=== PATIENT | male | born 2000 | race Caucasian/White ===

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

== ENCOUNTER 2019-12-07 18:36 | Emergency (ER) | payer MEDICAID ==
[~2019-12-07] VITALS: Ht 187.9 cm; Wt 82.0 kg
[2019-12-07 18:36] VITALS: BP 156/82
--- OUTSIDE RECORDS SUMMARY | 2019-12-07 18:42 | XMS REPORT ---
Author Author Manjinder Griffiths Organization [facility] Address Unknown Care Team Providers Care Assistant Director Name Role Phone RICARDO Griffiths Unavailable PROBLEMS Type Condition ICD9-CM Code [id number] Code Onset Dates Condition S tatus SNOMED Code Problem Attention deficit disorder without mention of hyperactivit y F98.8 Active 326315148 Problem Mild mental retardation F70 Active 23085501 ALLERGIES No Information ENCOUNTERS Encounter Location Date Diagnosis [facility] [address] [place] [id number] [place] [address] Jun, [facility] [address] [place] [address] [id number] [address] [place] [phone] Jun, Ingrowing nail with infectio n L60.0 [facility] [address] [facility] [id number] [address] [place] [phone] May, [facility] [address] [place] [id number] [address] [place] [phone] May, Ingrown toenail L60.0 [facility] [address] [place] [id number] [place] [address] Apr, Ingrown toenail of right dorinda t L60.0 [facility] [address] [facility] [id number] [address] [place] [phone] Apr, [facility] [address] [place] [id number] [address] [place] [phone] Apr, [facility] [address] [place] [id number] [place] [phone] Feb, Non-intractable vomiting wit h nausea, unspecified vomiting type R11.2 [facility] [address] [facility] [id number] [address] [place] [phone] May, Infection, nail, ingrowing L 60.0 [facility] [address] [id number] [address] [place] [phone] May, Infection, nail, ingrowing L 60.0 [facility] [address] [facility] [id number] [address] [place] [phone] Aug, Headache in front of head R5 1 [facility] [address] [id number] [address] [place] [phone] 16 Aug, 2015 Sore throat J02.9 and Upper respiratory infection J06.9 [facility] [address] [facility] [id number] [address] [place] [phone] May, Sinusitis J32.9 [facility] [place] [address] [facility] [id number] [address] [place] [phone] Apr, Bee allergy status Z91.030 [facility] [address] [id number] [address] [place] [phone] Sep, [facility] [address] [id number] [address] [place] [phone] Sep, [facility] [address] [id number] [address] [place] [phone] Jul, [facility] [address] [id number] [address] [place] [phone] Jul, [facility] [address] [id number] [address] [place] [phone] Jun, [facility] [address] [id number] [address] [place] [phone] Jun, [facility] [address] [id number] [address] [place] [phone] Apr, [facility] [address] [id number] [address] [place] [phone] Apr, [facility] [address] [id number] [address] [place] [phone] Mar, [facility] [address] [id number] [address] [place] [phone] Mar, [facility] [address] [id number] [address] [place] [phone] Mar, [facility] [address] [id number] [address] [place] [phone] Mar, [facility] [address] [id number] [address] [place] [phone] Nov, [facility] [address] [id number] [address] [place] [phone] May, [facility] [address] [id number] [address] [place] [phone] Mar, [facility] [address] [id number] [address] [place] [address] Apr, [facility] [address] [id number] [address] [place] [phone] Jul, [facility] [address] [id number] [address] [place] [address] Jun, IMMUNIZATIONS No Known Immunizations SOCIAL HISTORY Never Assessed REASON FOR VISIT PLAN OF CARE VITAL SIGNS MEDICATIONS Unknown Medications RESULTS No Results PROCEDURES No Known procedures INSTRUCTIONS MEDICATIONS ADMINISTERED No Known Medications MEDICAL (GENERAL) HISTORY Type Description Date Medical History ADHD Medical History Autism Surgical History tubes in ears 2002 Surgical History tonsils 2010 Hospitalization History surgeries
--- OUTSIDE RECORDS SUMMARY | 2019-12-07 18:42 | XMS REPORT ---
Author Author Manjinder COSTA Organization [facility] Address [address] [place] [address] Care Team Providers Care Media Coordinator Name Role Phone THANIA COSTA Unavailable PROBLEMS Type Condition ICD9-CM Code [id number] Code Onset Dates Condition S tatus SNOMED Code Problem Mild mental retardation F70 Active 65444642 Problem Attention deficit disorder without mention of hyperactivit y F98.8 Active 140143408 ALLERGIES No Known Allergies ENCOUNTERS Encounter Location Date Diagnosis [facility] [address] [id number] [address] [place] [phone] Aug, Headache in front of head R5 1 [facility] [address] [id number] [address] [place] [phone] Aug, Sore throat J02.9 and Upper respiratory infection J06.9 [facility] [place] [address] [place] [address] [id number] [address] [place] [phone] May, Sinusitis J32.9 [facility] [place] [address] [place] [id number] [address] [place] [address] Apr, Bee allergy status Z91.030 [facility] [address] [place] [address] [id number] [address] [place] [phone] Sep, [facility] [address] [facility] [id number] [address] [place] [phone] Sep, [facility] [address] [place] [address] [id number] [address] [place] [phone] Jul, [facility] [address] [id number] [address] [place] [phone] Jul, [facility] [address] [place] [address] [id number] [address] [place] [phone] Jun, [facility] [address] [id number] [address] [place] [phone] Jun, [facility] [address] [id number] [address] [place] [phone] Apr, [facility] [address] [id number] [address] [place] [phone] Apr, [facility] [address] [id number] [address] [place] [phone] Mar, [facility] [address] [id number] [address] [place] [phone] Mar, [facility] [address] [id number] [address] [place] [phone] Mar, [facility] [address] [id number] [address] [place] [phone] Mar, [facility] [address] [id number] [address] [place] [phone] Nov, [facility] [address] [id number] [address] [place] [phone] May, [facility] [address] [id number] [address] [place] [phone] Mar, [facility] [address] [id number] [address] [place] [phone] Apr, [facility] [address] [id number] [address] [place] [phone] Jul, [facility] [address] [id number] [address] [place] [phone] Jun, IMMUNIZATIONS No Known Immunizations SOCIAL HISTORY Never Assessed REASON FOR VISIT Headaches every day since sunday-Jose C PLAN OF CARE Activity Details Follow Up prn or if not improving Reas on: VITAL SIGNS Height 70 in 2017-09-19 Weight 168.8 lbs 2017-09-19 Temperature 99.7 degrees Fahrenheit 2017-09-19 Heart Rate 96 bpm 2017-09-19 Respiratory Rate 20 2017-09-19 BMI 24.22 kg/m2 2017-09-19 Blood pressure systolic 132 mmHg 2017-09-19 Blood pressure diastolic 76 mmHg 2017-09-19 MEDICATIONS Medication Instructions Dosage Frequency Start Date End Date Duration S tatus Loratadine 10 mg Orally Once a day 1 tablet 24h Aug, October, 30 day(s) Active Flonase 50 MCG/ACT Nasally Once a day 1 spray in each nostril 24h Aug, 30 day(s) Active RESULTS No Results PROCEDURES No Known procedures INSTRUCTIONS MEDICATIONS ADMINISTERED No Known Medications MEDICAL (GENERAL) HISTORY Type Description Date Medical History ADHD Medical History Autism Surgical History tubes in ears 2001 Surgical History tonsils 2009 Hospitalization History surgeries
--- OUTSIDE RECORDS SUMMARY | 2019-12-07 18:42 | XMS REPORT ---
Author Author Manjinder Jim Doctor Organization [facility] Address Unknown Phone Unavailable Care Team Providers Care Shredded Filler Machine Wrapper Layer Name Role Phone Migration, Doctor Unavailable Unavailable PROBLEMS Type Condition ICD9-CM Code [id number] Code Onset Dates Condition S tatus SNOMED Code Problem Attention deficit disorder without mention of hyperactivit y F98.8 Active 639240662 Problem Mild mental retardation F70 Active 72750010 ALLERGIES No Information ENCOUNTERS Encounter Location Date Diagnosis [place] [address] [address] May, Infection, nail, ingrowing L 60.0 [place] [address] [address] May, Infection, nail, ingrowing L 60.0 [place] [address] [place] [id number] [address] [place] [phone] Aug, Headache in front of head R5 1 [facility] [place] [address] [place] [address] [id number] [address] [place] [address] 16 Aug, 2015 Sore throat J02.9 and Upper respiratory infection J06.9 [facility] WALK IN [id number] [place] [address] May, Sinusitis J32.9 [facility] [place] [address] [address] [place] [id number] [address] [place] [address] Apr, Bee allergy status Z91.030 [place] [address] [place] [id number] [place] [phone] 14 Sep, 2014 [place] [address] [address] [place] [id number] [place] [phone] Sep, [place] [address] [place] [id number] [place] [phone] Jul, [facility] [address] [id number] [address] [place] [phone] Jul, [facility] [address] [id number] [address] [place] [phone] Jun, [facility] [address] [id number] [address] [place] [phone] Jun, [facility] [address] [id number] [address] [place] [phone] Apr, [facility] [address] [id number] [address] [place] [address] Apr, [facility] [address] [id number] [address] [place] [phone] Mar, [facility] [address] [id number] [address] [place] [phone] Mar, [facility] [address] [id number] [address] [place] [phone] Mar, [facility] [address] [id number] [address] [place] [phone] Mar, [facility] [address] [id number] [address] [place] [phone] Nov, [facility] [address] [id number] [address] [place] [phone] May, [facility] [address] [id number] [address] [place] [phone] Mar, [facility] [address] [id number] [address] [place] [phone] Apr, [facility] [address] [id number] [address] [place] [phone] 14 Jul, 2005 [facility] [address] [id number] [address] [place] [phone] Jun, IMMUNIZATIONS No Known Immunizations SOCIAL HISTORY Never Assessed REASON FOR VISIT EMR-[facility] [place] PLAN OF CARE VITAL SIGNS MEDICATIONS No Known Medications RESULTS No Results PROCEDURES No Known procedures INSTRUCTIONS MEDICATIONS ADMINISTERED No Known Medications MEDICAL (GENERAL) HISTORY Type Description Date Medical History ADHD Medical History Autism Surgical History tubes in ears 2001 Surgical History tonsils 2010 Hospitalization History surgeries
--- OUTSIDE RECORDS SUMMARY | 2019-12-07 18:42 | XMS REPORT ---
Author Author Manjinder Jim Doctor Organization [facility] Address Unknown Phone Unavailable Care Team Providers Care Door Closer Name Role Phone Migration, Doctor Unavailable Unavailable PROBLEMS Type Condition ICD9-CM Code [id number] Code Onset Dates Condition S tatus SNOMED Code Problem Attention deficit disorder without mention of hyperactivit y F98.8 Active 523334876 Problem Mild mental retardation F70 Active 87610916 ALLERGIES No Information ENCOUNTERS Encounter Location Date Diagnosis [place] [address] [address] May, Infection, nail, ingrowing L 60.0 [place] [address] [address] May, Infection, nail, ingrowing L 60.0 [place] [address] [address] [place] [id number] [place] [phone] Aug, Headache in front of head R5 1 [facility] [place] [address] [address] [place] [id number] [address] [place] [phone] 16 Aug, 2015 Sore throat J02.9 and Upper respiratory infection J06.9 [facility] WALK IN [address] [place] [address] May, Sinusitis J32.9 [facility] [place] [address] [address] [place] [id number] [address] [place] [address] Apr, Bee allergy status Z91.030 [place] [address] [address] [place] [id number] [address] [place] [address] 14 Sep, 2014 [place] [address] [address] [place] [id number] [address] [place] [phone] Sep, [place] [address] [address] Jul, [facility] [address] [id number] [address] [place] [phone] Jul, [facility] [address] [id number] [address] [place] [phone] Jun, [facility] [address] [id number] [address] [place] [phone] Jun, [facility] [address] [id number] [address] [place] [phone] Apr, [facility] [address] [id number] [address] [place] [phone] Apr, [facility] [address] [id number] [address] [place] [phone] Mar, [facility] [address] [id number] [address] [place] [phone] Mar, [facility] [address] [id number] [address] [place] [phone] Mar, [facility] [address] [id number] [address] [place] [phone] Mar, [facility] [address] [id number] [address] [place] [phone] Nov, [facility] [address] [id number] [address] [place] [phone] May, [facility] [address] [id number] [address] [place] [phone] Mar, [facility] [address] [id number] [address] [place] [phone] Apr, [facility] [address] [id number] [address] [place] [phone] 14 Jul, 2005 [facility] [address] [id number] [address] [place] [phone] Jun, IMMUNIZATIONS No Known Immunizations SOCIAL HISTORY Never Assessed REASON FOR VISIT EMR-[facility] PLAN OF CARE VITAL SIGNS MEDICATIONS Medication Instructions Dosage Frequency Start Date End Date Duration S lissa Focalin 5 mg take 1 tablet (5 mg) by oral route 2 times per day at least 4 hours apart Mar, Active RESULTS No Results PROCEDURES No Known procedures INSTRUCTIONS MEDICATIONS ADMINISTERED No Known Medications MEDICAL (GENERAL) HISTORY Type Description Date Medical History ADHD Medical History Autism Surgical History tubes in ears 2001 Surgical History tonsils 2010 Hospitalization History surgeries
--- OUTSIDE RECORDS SUMMARY | 2019-12-07 18:42 | XMS REPORT ---
Author Author Manjinder LIRA Organization [facility] Address [address] [place] [address] Care Team Providers Care Ag Equipment Field Service Technician Name Role Phone SORAYA ESTHER Unavailable PROBLEMS Type Condition ICD9-CM Code [id number] Code Onset Dates Condition S tatus SNOMED Code Problem Attention deficit disorder without mention of hyperactivit y F98.8 Active [id number] Problem Mild mental retardation F70 Active [id number] ALLERGIES No Information ENCOUNTERS Encounter Location Date Diagnosis [place] [id number] [address] May, Infection, nail, ingrowing L 60.0 [place] [address] [address] May, Infection, nail, ingrowing L 60.0 [facility] [address] [address] Aug, Headache in front of head R5 1 [facility] [address] [place], [place] [id number] [address] [place] [address] Aug, Sore throat J02.9 and Upper respiratory infection J06.9 [facility] [address] [place] [id number] [address] [place] [phone] May, Sinusitis J32.9 [facility] [place] [address] [address] [place] [id number] [place] [address] Apr, Bee allergy status Z91.030 [facility] [address] [address] 14 Sep, 2014 [facility] [address] [address] 13 Sep, 2014 [facility] [address] [id number] [address] [place] [address], [place] [address] Jul, [facility] [address] [id number] [address] [place] [address], [place] [address] Jul, [facility] [address] [id number] [address] [place] [address], [place] [address] Jun, [facility] [address] [id number] [address] [place] [address], [place] [address] Jun, [facility] [address] [id number] [address] [place] [address], [place] [address] Apr, [facility] [address] [id number] [address] [place] [address], [place] [address] Apr, [facility] [address] [id number] [address] [place] [address], [place] [address] Mar, [facility] [address] [id number] [address] [place] [phone] Mar, [facility] [address] [id number] [address] [place] [address], [place] [address] Mar, [facility] [address] [id number] [address] [place] [phone] Mar, [facility] [address] [id number] [address] [place] [address] Nov, [facility] [address] [id number] [address] [place] [id number] 17 May, 2008 [facility] [address] [id number] [address] [place] [address], [place] [address] 14 Mar, 2008 [facility] [address] [id number] [address] [place] [phone] 14 Apr, 2006 [facility] [address] [id number] [address] [place] [phone] 14 Jul, 2005 [facility] [address] [id number] [address] [place] [phone] Jun, IMMUNIZATIONS No Known Immunizations SOCIAL HISTORY Never Assessed REASON FOR VISIT PLAN OF CARE VITAL SIGNS Height 67 in 2014-04-17 Weight 135 lbs 2014-04-17 Temperature 96.9 degrees Fahrenheit 2014-04-17 Heart Rate 80 bpm 2014-04-17 Respiratory Rate 18 2014-04-17 Blood pressure systolic 106 mmHg 2014-04-17 Blood pressure diastolic 64 mmHg 2014-04-17 MEDICATIONS No Known Medications RESULTS No Results PROCEDURES Procedure Date Ordered Result Body Site CHEST X-RAY Apr 17, 2014 INSTRUCTIONS MEDICATIONS ADMINISTERED No Known Medications MEDICAL (GENERAL) HISTORY Type Description Date Medical History ADHD Medical History Autism Surgical History tubes in ears 2001 Surgical History tonsils 2010 Hospitalization History surgeries
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
--- OUTSIDE RECORDS SUMMARY | 2019-12-07 18:42 | XMS REPORT ---
Author Author [place] [facility] Address [address] [place] [address] [address] Care Team Providers Care Operating Systems Programmer Name Role Phone ALBERT MONTANEZ Unavailable Unavailable ZHOUBRITNEY ALVARADO Unavailable Unavailable [facility] Un[facility] Unavailable LARA COSTANYA Unavailable Migration, Doctor Unavailable Unavailable DAISY SONG Unavailable Unavailable PAONI, RAMSEY Unavailable Unavailable PAONI, RAMSEY Unavailable Unavailable DANG DEA Unavailable Unavailable PAONI, RAMSEY Unavailable Unavailable PAONI, RAMSEY Unavailable Unavailable Migration, Doctor Unavailable Unavailable ARIK PETERSEN Unavailable Unavailable BROWN, HITESH Unavailable Unavailable BROWN, HITESH Unavailable Unavailable SABAS LOCO Unavailable RISHI LIPSCOMB Unavailable ESTHER LIRA Unavailable ESTHER LIRA Unavailable RICARDO Griffiths Unavailable Unavailable Unavailable Unavailable Unavailable Allergies Normalized Allergy Reported Date of Reaction(s) Care Provider Facility Allergy Type classification allergen Allergy Onset no information Unclassified NO KNOWN DRUG NO KNOWN DRUG CUCA Not Available (19 sources.) ALLERGIES ALLERGIES GILDA ([id number]) Medications Current Medications Medication Ingredient Drug Dose Dates Status Sig Sig Care Class(es) (Normalized) (Original) Provid er dexmethylph dexmethylph Central 5 mg 04-17-20 Active take 1 Fo jaylon 5 mg no enidate enidate Nervous 14 tablet by take 1 name hydrochlori Translation System mouth twice tablet (5 de 5 mg s: [ Stimulant daily mg) by oral oral tablet Focalin 5 route 2 (1 source.) mg] times per day at least 4 hours apart Mar, Active Completed/Discontinued Medications Medication Ingredient Drug Dose Dates Status Sig Sig Care Class(es) (Normalized) (Original) Provid er no AMOX-CLAV no 11-07-19 no no no no information 875/125 TAB information 19 - informat informati on information name (1 source.) 875 11-07-19 ion MG-125MG 19 (AUGMENTIN) no AMOX-CLAV no 10-25-19 no no no no information 875/125 TAB information 17 - informat informati on information name (1 source.) 875 10-25-19 ion MG-125MG 17 (AUGMENTIN) no KETOROLAC no 10-11-19 no no no no information VIAL INJ 30 information 19 - informat informati on information name (1 source.) MG/CC 10-11-19 ion (TORADOL 19 VIAL) no Nitroglycer Nitrate 0.4 mg 10-11-19 no no no no information in Vasodilator 19 - informat information infor mation name (1 source.) 10-11-19 ion 19 no POLY/BACI/N no 10-25-19 no no no no information EOM OINT information 17 - informat information inf ormation name (1 source.) OINT 0 10-25-19 ion (NEOSPORIN) 17 NEGATED no no 04-15-20 no no no no no information information 18 - informat information infor mation name information 04-15-20 ion (1 source.) 18 NEGATED no no 600 mg 04-15-20 no no no no no information information 18 - informat information infor mation name information 04-15-20 ion (1 source.) 18 NEGATED no no 04-15-20 no no no no no information information 18 - informat information infor mation name information 04-15-20 ion (1 source.) 18 NEGATED no no 500 mg 03-21-20 no no no no no information information 18 - informat information infor mation name information 03-21-20 ion (1 source.) 18 NEGATED no no 12-17-19 no no no no no information information 18 - informat information infor mation name information 12-24-19 ion (1 source.) 18 NEGATED no no 1 g 12-17-19 no no no no no information information 18 - informat information infor mation name information 12-24-19 ion (1 source.) 18 Problems Active Problems Problem Normalized Date Last Normalized Normalized Provider Fa cility Classification Problem(s) Recorded Problem Problem Sta tus Duration Acute Acute Episodic Active [facility] bronchitis (21 bronchitis, [place] of sources.) unspecified [place] Translations: [facility] () [ ACUTE BRONCHITIS] Attention-defi Adult Chronic Active Doctor Communit y cit conduct attention [facility] and disruptive deficit of [facility] behavior hyperactivity [place] ([address]) disorders (7 disorder sources.) Translations: [ Attention deficit disorder without mention of hyperactivity] External cause Bitten by dog, Episodic Active [facility] spital codes: initial LEISURE [facility]1 of Natural/enviro encounter [place] nment (20 County ([address]) sources.) Mycoses (20 Candidiasis of Episodic [facility] sources.) skin and nail LEIS[facility] o f [facility] ([id number]) Other Encounter for [facility] aftercare (26 change or LEISURE [place] [facility] of sources.) removal of [place] surgical wound [facility] ([id number]) dressing NEGATED Encounter for Episodic Active RADHA GARDENIA Not Available no change or ([address]) information (6 removal of sources.) surgical wound dressing Bacterial [facility] Active [facility] infection; bacillus LEISURE [facility] of unspecified infection in [place] site (24 conditions [facility] ([address]) sources.) classified elsewhere and of unspecified site Translations: [ METHICILLIN SUSCEP STAPH INFCT CAUSING DIS CLASSD ELSWHR, KLEBSIELLA PNEUMONIAE THE CAUSE OF DISEASES CLASSD ELSWHR, METHICILLIN SUSCEPTIBLE STAPHYLOCOCCUS AUREUS INFECTION IN CONDITIONS CLASSIFIED ELSEWHERE AND OF UNSPECIFIED SITE, KLEBSIELLA PNEUMONIAE THE CAUSE OF DISEASES CLASSD ELSWHR] Complications Infection Episodic Active [facility] of surgical following a LEISURE [facility] of procedures or procedure, [place] medical care [facility] ([id number]) (15 sources.) encounter Translations: [ OTHER POSTOPERATIVE INFECTION] Other skin Ingrowing nail Episodic Active Doctor Commun ity disorders (20 Translations: [facility] sources.) [ - Infection, of [facility] nail, [place] ([address]) ingrowing L60.0, - Ingrowing nail with infection L60.0, - Ingrown toenail L60.0, - Ingrown toenail of right foot L60.0] Other skin Ingrowing nail Episodic Active ARIK HOWAYEK Ho spital disorders (16 District [place]1 of sources.) [facility] ([id number]) Viral Viral Episodic Active [facility] infection (25 infection, [place] of sources.) unspecified [place] Translations: [facility] ([id number]) [ UNSPECIFIED VIREMIA] Past or Other Problems Problem Normalized Date Last Normalized Normalized Provider Fa cility Classification Problem(s) Recorded Problem Problem Sta tus Duration External cause Bitten by dog, no information no information HANNA TIN Not Available codes: initial [place] ([id number]) Natural/enviro encounter nment (4 Translations: sources.) [ DOG BITE] Spondylosis; Cervicalgia Episodic Com[facility] inter[facility]bral [facility] of disc [place] disorders; [facility] ([address]663) other back problems (20 sources.) Procedures Procedure Normalized Procedure Procedure Result Performer Facility Date 04-17-2014 Chest x-ray no information no name [facility] ([id number]) 05-01-2014 Psychiatric diagnostic no information no name [facility] (08856) Immunizations The data below is from unstructured sourcesNo immunization records.No immunization records.No immunization records.No immunization records.No immunization records.No immunization records.No immunization records.No immunization records.No immunization records. No Known Immunizations No Known Immunizations No Known Immunizations No Known Immunizations No Known Immunizations No Known Immunizations No Known Immunizations No Known Immunizations No Known Immunizations No Known Immunizations No Known Immunizations No Known Immunizations No Known Immunizations No Known Immunizations No Known Immunizations No Known Immunizations Results Test Name Value Interpretation Reference Range Date Time Fa cility (Normalized) (Normalized) (Medline Reference) other on 2018-06-07 S. pyogenes DNA Negative (A) 06-07-2018 Hospital JHONNY+probe Ql 21:55-0500 District [facility] of (Throat) [facility] ([id number]) Vital Signs Vital Sign Value Interpretation Reference Date Time Care Prov ider Facility (Normalized) (Normalized) Range Body 96.9 [degF] (no code) 97.8 - 99.0 04-17-2014 ESTHER [facility] Temperature [degF] 12: 23651 [facility] ([id number]) Body weight 61.24 kg (no code) kg 04-17-2014 [facility] 12:14 [address]98 [facility] (04970) Height 170.18 cm (no code) 04-17-2014 ESTHER Garcia [facility] 12:14-0400 67725 [facility] ([id number]) Interventions No Information Plan of Treatment The data below is from unstructured sources Discharge Date 04/28/15 7:24pm Disposition 07 AGAINST MEDICAL ADVIC E Condition at Discharge Improved Prescriptions See Medication Section Referrals [facility] - Primary Care Physician Discharge Date 12/01/15 1:45am Disposition 01 HOME, SELF-CARE Condition at Discharge Improved Instructions/Education Provided Acut e Nausea and Vomiting (ED) Prescriptions See Medication Section Referrals [facility] - Primary Care Physician Additional Instructions/Education Co mplete your antibiotics as prescribed. You may take ibuprofen up to 600 mg every 6 hours as needed for pain in the foot or headache. Follow-up with your primary care provider as needed. All discharge instructions reviewed with patient and/or family. Voiced understanding. Activity Details Follow Up prn or if not improving Re ason: Goals No Information Social History No Information Functional Status The data below is from unstructured sourcesNo functional status results.No functional status results.No functional status results.No functional status results.No functional status results.No functional status results.No functional status results.No functional status results.No functional status results.No functional status results.No functional status results. Mental Status No Information Encounters Encounter Normalized Encounter Encounter Diagnosis Care Provi areli Organization Date Type 06-10-2018 (ACUTE) Acute Visit Ingrowing nail ESTHER LIRA (no [facility] - phone) (no phone) 06-10-2018 - 06-10-2018 06-19-2018 (PROC-20) Procedure-20 Ingrowing nail ESTHER LIRA (no [facility] - min phone) (no phone) 06-19-2018 - 06-19-2018 05-14-2019 [facility] Ingrowing nail BRITNEY CARPENTER ( no [facility] CARE phone) CARE (no phone) 03-20-2019 [facility] Nausea with vomiting, АННА STINSON ([facility] unspecified phone) CARE (no phone) 07-08-2019 [facility] Ingrowing nail ESTHER LIRA ( no [facility] phone) (no phone) 06-05-2019 [facility] Ingrowing nail ANA BEAR (no [facility] phone) (no phone) 04-15-2018 Patient encounter no information no name no or ganization name - 04-15-2018 03-21-2018 Patient encounter no information no name no or ganization name - 03-21-2018 03-21-2018 Patient encounter no information no name no or ganization name - 03-21-2018 12-23-2017 Patient encounter no information no name no or ganization name - 12-23-2017 12-22-2017 Patient encounter no information no name no or ganization name - 12-22-2017 12-21-2017 Patient encounter no information no name no or ganization name - 12-21-2017 12-20-2017 Patient encounter no information no name no or ganization name - 12-20-2017 NEGATED Patient encounter no information no name no or ganization name 12-19-2017 - 12-19-2017 NEGATED Patient encounter no information no name no or ganization name 12-15-2017 - 12-17-2017 09-19-2017 Patient encounter no information no name no or ganization name 05-07-2019 Patient encounter no information no name no or ganization name - procedure 05-07-2019 11-06-2018 Patient encounter no information no name no or ganization name - procedure 11-06-2018 10-10-2018 Patient encounter no information no name no or ganization name - procedure 10-10-2018 06-19-2018 Patient encounter no information no name no or ganization name procedure 06-10-2018 Patient encounter no information no name no or ganization name procedure 06-07-2018 Patient encounter no information no name no or ganization name - procedure 06-07-2018 12-28-2016 Patient encounter no information no name no or ganization name - procedure 12-28-2016 10-24-2016 Patient encounter no information no name no or ganization name - procedure 10-24-2016 10-23-2016 Patient encounter no information no name no or ganization name procedure 07-11-2019 Telephone encounter no information ESTHER LIRA (no [facility] phone) (no phone) 06-06-2019 Telephone encounter no information ANA BEAR (n o [facility] phone) (no phone) 05-13-2019 Telephone encounter no information KATY CABRERA (no phone) [facility] (no phone) 05-08-2019 Telephone encounter no information KATY CABRERA (no phone) [facility] (no phone) Medical Equipment No Information Payers Normalized Payer Value Medicaid no information NEGATED no information Self-pay History general Narrative - Reported Note Type Note Facility History general Narrative - Reported Type Medical ADHD History Medical Autism History Surgical tubes in ears 2001 History Surgical tonsils 2009 History Hospitaliz surgeries ation History [facility] ([id number]) Summary Purpose eClinicalWorks SubmissioneClinicalWorks Submission Advance Directives Directive Response Recor ded Date/Time Advance Directives No 10:42pm Directive Response Recor ded Date/Time Advance Directives No 12:50am Resuscitation Status Full Code 12/01/15 12:50am Directive Response Recor ded Date/Time Advance Directives No 10:42pm Resuscitation Status Full Code 12/20/14 10:42pm Directive Response Recor ded Date/Time Advance Directives No 5:02pm Resuscitation Status Full Code 08/24/14 5:02pm Directive Response Recor ded Date/Time Advance Directives No 4:08pm Resuscitation Status Full Code 04/01/14 4:08pm Directive Response Recor ded Date/Time Advance Directives No 9:12pm Resuscitation Status Full Code 09/30/14 9:12pm Discharge Instructions No hospital discharge instructions.No hospital discharge instructions.No hospital discharge instructions.No hospital discharge instructions.No hospital discharge instructions.No hospital discharge instructions. Additional Source Comments This clinical document has been generated using RoboEd software that has been certified by the Office of the National Coordinator for Health Information Technology (ONC 15.99.04.3023.Diam.31.00.0.021318) and the National Committee for Shredding Machine Tender (NCQA, as an eMeasure certified technology). FOR RECORDS PERTAINING TO PATIENTS WHO ARE OR HAVE BEEN ENROLLED IN A CHEMICAL D EPENDENCY/SUBSTANCE ABUSE PROGRAM, SOME INFORMATION MAY BE OMITTED. This clinica l summary was aggregated from multiple sources. Caution should be exercised in using it in the provision of clinical care. This summary normalizes information from multiple sources, and as a consequence, information in this document may ma terially change the coding, format and clinical context of patient data. In sandy tion, data may be omitted in some cases. CLINICAL DECISIONS SHOULD BE BASED ON T HE PRIMARY CLINICAL RECORDS. [employer] provides no warranty or guara ntee of the accuracy or completeness of information in this document.The followi ng information is based on time limited clinical information UNRECOGNIZED CONTENT PROVIDED BELOW FOR UNRECOGNIZED SECTION MEDICAL (GENERAL) HISTORY Type Description Date Medical History ADHD Medical History Autism Surgical History tubes in ears 2001 Surgical History tonsils 2010 Hospitalization History surgeries UNRECOGNIZED CONTENT PROVIDED BELOW FOR UNRECOGNIZED SECTION REASON FOR VISIT [id number]
--- OUTSIDE RECORDS SUMMARY | 2019-12-07 18:42 | XMS REPORT ---
Author Author Manjinder MONTANEZ [facility] eClinicalWorks Address Unknown Phone Unavailable Care Team Providers Care Fighting Vehicle Systems Maintainer Name Role Phone ALBERT MONTANEZ CP Unavailable Allergies, Adverse Reactions, Alerts Substance Reaction Event Type N.K.D.A. 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 Active Problem STATE HEP A (ADULT) DX [...] Instructions Start Date End Date Status Dosage Benadryl Allergy [facility] [address]-79 25 MG Orally every 6 hrs 1 tablet as needed Depo-Medrol [facility] [address]-61 40 MG/ML Injection once Apr 29 15 May 29, 2015 1 drop Procedures Procedure Coding System Code Date THER/PROPH/DIAG INJ, SC/IM CPT-4 14098 Apr Office Visit, Est Pt., Level 3 CPT-4 51141 N 2014 DEPO MEDROL 40 MG/ML CPT-4 J1030 Apr 29, 201 5 Vital Signs Date/Time: Apr 29, 2015 Cardiac Monitoring Heart Rate 64 bpm Temperature 98.2 F Weight 150.0 lbs Wt Percentile 59.61 % Blood Pressure Diastolic 74 mmHg Blood Pressure Systolic 122 mmHg Results No Known Results Summary Purpose eClinicalWorks Submission
--- OUTSIDE RECORDS SUMMARY | 2019-12-07 18:42 | XMS REPORT ---
Author Author Manjinder LIPSCOMB Organization [facility] Address Unknown Care Team Providers Care Soft Water Mechanic Name Role Phone RUELASHLEY SCHWARTZLEY Unavailable PROBLEMS Type Condition ICD9-CM Code LNU29-[id number] Code Onset Dates Condition S tatus SNOMED Code Problem Attention deficit disorder without mention of hyperactivit y F98.8 Active 899090521 Problem Mild mental retardation F70 Active [id number] ALLERGIES No Information ENCOUNTERS Encounter Location Date Diagnosis [id number] [id number] [place] [address] May, Infection, nail, ingrowing L 60.0 [place] [address] [address] [place] [id number] [address] [place] [address] May, Infection, nail, ingrowing L 60.0 [facility] [address] [place] [id number] [address] [place] [address] Aug, Headache in front of head R5 1 [facility] WALK [place] [address] [place] [id number] [address] [place] [address] 16 Aug, 2015 Sore throat J02.9 and Upper respiratory infection J06.9 [facility] WALK IN [facility] [address] [place] [address] May, Sinusitis J32.9 [facility] WALK [place] [address] [address] [place] [id number] [address] [place] [address] Apr, Bee allergy status Z91.030 [place] [address] [address] [place] [id number] [place] [address] 14 Sep, 2014 [facility] [address] [place] [id number] [place] [address] Sep, [facility] [address] [id number] [address] [place] [address], [place] [address] Jul, [facility] [address] [id number] [address] [place] [address], [place] [address] Jul, [facility] [address] [id number] [address] [place] [address], [place] [address] Jun, [facility] [address] [id number] [address] [place] [address], [place] [address] Jun, [facility] [address] [id number] [address] [place] [address], [place] [address] Apr, [facility] [address] [id number] [address] [place] [address], [place] [address] Apr, [facility] [address] [id number] [address] [place] [address], [place] [address] Mar, [facility] [address] [id number] [address] [place] [address], [place] [address] Mar, [facility] [address] [id number] [address] [place] [address], [place] [address] Mar, [facility] [address] [id number] [address] [place] [address], [place] [address] Mar, [facility] [address] [id number] [address] [place] [address], [place] [address] Nov, [facility] [address] [id number] [address] [place] [address], [place] [address] 17 May, 2008 [facility] [address] [id number] [address] [place] [address], [place] [address] 14 Mar, 2008 [facility] [address] [id number] [address] [place] [address], [place] [address] 14 Apr, 2006 [facility] [address] [id number] [address] [place] [address], [place] [address] 14 Jul, 2005 [facility] [address] [id number] [address] [place], [place] [address] [address] Jun, IMMUNIZATIONS No Known Immunizations SOCIAL HISTORY Never Assessed REASON FOR VISIT PLAN OF CARE VITAL SIGNS MEDICATIONS No Known Medications RESULTS No Results PROCEDURES Procedure Date Ordered Result Body Site PSYCH DIAGNOSTIC EVALUATION May 01, 2014 INSTRUCTIONS MEDICATIONS ADMINISTERED No Known Medications MEDICAL (GENERAL) HISTORY Type Description Date Medical History ADHD Medical History Autism Surgical History tubes in ears 2001 Surgical History tonsils 2010 Hospitalization History surgeries
--- OUTSIDE RECORDS SUMMARY | 2019-12-07 18:42 | XMS REPORT ---
Author Author Manjinder LIRA Organization [facility] Address [address] [place] [address] Care Team Providers Care Assistant Operations Manager Name Role Phone ESTHER LIRA Unavailable PROBLEMS Type Condition ICD9-CM Code UQG30-GV Code Onset Dates Condition S tatus SNOMED Code Problem Attention deficit disorder without mention of hyperactivit y F98.8 Active 520453890 Problem Mild mental retardation F70 Active [id number] ALLERGIES No Information ENCOUNTERS Encounter Location Date Diagnosis [place] [id number] [address] May, Infection, nail, ingrowing L 60.0 [place] [address] [address] May, Infection, nail, ingrowing L 60.0 [facility] [address] [address] Aug, Headache in front of head R5 1 [facility] WALK IN [facility] [address] [place] [id number] [address] [place] [address] Aug, Sore throat J02.9 and Upper respiratory infection J06.9 [facility] WALK IN [facility] [address] [place] [id number] [address] [place] [address] May, Sinusitis J32.9 [facility] WALK IN [place] [address] [address] [place] [id number] [address] [place] [address] Apr, Bee allergy status Z91.030 [facility] [address] [address] 14 Sep, 2014 [facility] [address] [address] Sep, [facility] [address] [id number] [address] [place] [address], [place] [address] Jul, [facility] [address] [id number] [address] [place] [address], [place] [address] Jul, [facility] [address] [id number] [address] [place] [address], [place] [address] Jun, [facility] [address] [id number] [address] [place] [address], [place] [address] Jun, [facility] [address] [id number] [address] [place] [address], [place] [address] Apr, [facility] [address] [id number] [address] [place] [address], [place] [address] Apr, [facility] [address] [id number] [address] [place] [address], [place] [address] Mar, [facility] [address] [id number] [address] [place] [address] Mar, [facility] [address] [id number] [address] [place] [address], [place] [address] Mar, [facility] [address] [id number] [address] [place] [address] Mar, [facility] [address] [id number] [address] [place] [address] Nov, [facility] [address] [id number] [address] [place] [address] 17 May, 2008 [facility] [address] [id number] [address] [place] [address], [place] [address] 14 Mar, 2008 [facility] [address] [id number] [address] [place] [address] 14 Apr, 2006 [facility] [address] [id number] [address] [place] [address] 14 Jul, 2005 [facility] [address] [id number] [address] [place] [address] Jun, IMMUNIZATIONS No Known Immunizations SOCIAL HISTORY [...]
--- OUTSIDE RECORDS SUMMARY | 2019-12-07 18:42 | XMS REPORT ---
Author Author Manjinder LOCO Organization [facility] Address [address] [place] [address] Care Team Providers Care Physical Metallurgist Name Role Phone SABAS LOCO Unavailable PROBLEMS Type Condition ICD9-CM Code AQC35-PO Code Onset Dates Condition S tatus SNOMED Code Problem Attention deficit disorder without mention of hyperactivit y F98.8 Active 145281030 Problem Mild mental retardation F70 Active 70448600 ALLERGIES No Information ENCOUNTERS Encounter Location Date Diagnosis [place] [address] [address] May, Infection, nail, ingrowing L [address] [address] May, Infection, nail, ingrowing L 60.0 [facility] [address] [place] [address] Aug, Headache in front of head R5 1 [facility] WALK IN [address] [address] 16 Aug, 2015 Sore throat J02.9 and Upper respiratory infection J06.9 [facility] WALK IN [place] [id number] [address] [place] [address] 08 May, 2015 Sinusitis J32.9 [facility] WALK IN [address] [address] 05 Apr, 2015 Bee allergy status Z91.030 [place] [address] [place] [id number] [address] [place] [address] 14 Sep, 2014 [place] [address] [address] Sep, [facility] [address] [id number] [address] [place] [address], [place] [address] Jul, [facility] [address] [id number] [address] [place] [address], [place] [address] Jul, [facility] [address] [id number] [address] [place] [address], [place] [address] Jun, [facility] [address] [id number] [address] [place] [address], [place] [address] Jun, [facility] [address] [id number] [address] [place] [address], [place] [address] Apr, [facility] [address] [id number] [address] [place] [address], [place] [address] Apr, [facility] [address] [id number] [address] [place] [address], [place] [address] Mar, [facility] [address] [id number] [address] [place] [address] Mar, [facility] [address] [id number] [address] [place] [address], [place] [address] Mar, [facility] [address] [id number] [address] [place] [address] Mar, [facility] [address] [id number] [address] [place] [address], [place] [address] Nov, [facility] [address] [id number] [address] [place] [address] 17 May, 2008 [facility] [address] [id number] [address] [place] [address], [place] [address] 14 Mar, 2008 [facility] [address] [id number] [address] [place] [address] 14 Apr, 2006 [facility] [address] [id number] [address] [place] [address], [place] [address] 14 Jul, 2005 [facility] [address] [id number] [address] [place] [address], [place] [address] Jun, IMMUNIZATIONS No Known Immunizations SOCIAL HISTORY [...]
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
--- NOTE | 2019-12-07 18:46 | ED Integumentary General ---
General Chief Complaint: Skin/Wound Problems Stated Complaint: FOOT BLEED Source: patient Exam Limitations: no limitations History of Present Illness Date Seen by Provider: Dec 07, 2019 Time Seen by Provider: 18:43 Initial Comments To ER with reports of bleeding right foot. He was here 2 days ago and had sutures placed to the plantar surface of the arch of the foot on the right following stepping on a piece of glass. Today he was walking at [facility] without using crutches when he noticed some bleeding. He was brought in by EMS. Timing/Duration: constant Severity: moderate Associated Symptoms: denies symptoms Allergies and Home Medications Allergies Coded Allergies: No Known Drug Allergies (Unverified , 04/01/14) Home Medications Sulfamethoxazole/Trimethoprim 1 Each Tablet, 1 EACH PO BID Prescribed by: CHUCK YEE on 12/01/15 0141 Patient Home Medication List Home Medication List Reviewed: Yes Review of Systems Review of Systems Constitutional: see HPI EENTM: see HPI Respiratory: no symptoms reported Cardiovascular: no symptoms reported Genitourinary: no symptoms reported Musculoskeletal: no symptoms reported Skin: see HPI Psychiatric/Neurological: No Symptoms Reported Endocrine: No Symptoms Reported Hematologic/Lymphatic: No Symptoms Reported Past Fpdmdat-Phfhzi-Slukhb Hx Patient Social History Type Used: Cigarettes Immunizations Up To Date Tetanus Booster (TDap): Less than 5yrs PED Vaccines UTD: Yes Seasonal Allergies Seasonal Allergies: No Past Medical History Surgeries: Yes (bmt) Adenoidectomy, Ear Surgery, Tonsillectomy Respiratory: No Cardiac: No Neurological: No Gastrointestinal: No Musculoskeletal: No Endocrine: No Cancer: No Psychosocial: No Integumentary: No Blood Disorders: No Family Medical History No Pertinent Family Hx Physical Exam Vital Signs Capillary Refill : General Appearance: WD/WN, no apparent distress HEENT: PERRL/EOMI, normal ENT inspection Respiratory: no respiratory distress, no accessory muscle use Neurologic/Psychiatric: alert, normal mood/affect, oriented x 3 Skin: normal color, other (there is a laceration to the plantar surface of the arch of the right foot, the stitches are intact, there is a bit of bruising around this, no active bleeding. No erythema to suggest infection. This was cleansed and some antibiotic ointment was reapplied as well as 4 x 4's then Sophia. He states that the crutches he had at home were given to him by a friend but they are too short for him. We'll give him a pair of crutches that fit so that he doesn't tear of the stitches. I would suspect that he had a hematoma that began to leak out while walking at [facility].) Skin Problem Character: other Departure Impression Primary Impression: Laceration of right foot Qualified Codes: S91.311A - Laceration without foreign body, right foot, initial encounter Disposition: HOME, SELF-CARE Condition: Stable Departure-Patient Inst. Decision time for Depature: 18:45 Referrals: NO,LOCAL PHYSICIAN (PCP/Family) Primary Care Physician Patient Instructions: Wound Care (DC), Laceration Repair With Navneet (DC) Add. Discharge Instructions: 1. Return to ER for any concerns 2. Use the crutches for the next 2 weeks until the stitches come out. Return to the emergency room to have them out. Continue the antibiotics. Pain medication as directed. Try not to bear any weight on this foot. All discharge instructions reviewed with patient and/or family. Voiced understanding. DAISY SONG DRILLING MACHINE RUNNER Dec 07, 2019 18:46
[2019-12-07] MEDS ORDERED: RX-HYDROCODONE/APAP 5/325 MG #4 TAB PK PO PRN (19:00)
== END 2019-12-07 18:56 | disposition home or self-care (01) ==
LOC: EDUNIT# 18:36 → ER 18:37
DX: S91.311D Laceration without foreign body, right foot, subsequent encounter (principal); W25.XXXD Contact with sharp glass, subsequent encounter
CPT/HCPCS: 99283

== ENCOUNTER 2019-12-10 23:51 | Emergency (ER) | payer MEDICAID ==
[~2019-12-10] VITALS: Ht 188 cm; Wt 82.0 kg
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
[2019-12-11] MEDS ORDERED: HYDR-83 (00:05)
[2019-12-11] MEDS ORDERED: CEPH500C (00:05)
[2019-12-11] MEDS ORDERED: NAPR-915 (00:05)
--- NOTE | 2019-12-11 01:05 | NUR ---
dressing removed, bleeding stopped wound cleaned and dressing reapplied.
--- NOTE | 2019-12-11 01:12 | ED General ---
General Chief Complaint: Skin/Wound Problems Stated Complaint: RT FT BLEEDING Nursing Triage Note: reports stepping on glass 12/05/2019 with laceration repair at [facility]. states tonight laceration started bleeding while pt was sitting. Nursing Sepsis Screen: No Definite Risk Source of Information: Patient ( shot of Decadron) Exam Limitations: No Limitations History of Present Illness Date Seen by Provider: Dec 11, 2019 Time Seen by Provider: 00:53 Initial Comments Here with report of bleeding from the wound on his right foot. He stepped on glass on 12/05/19. He was seen at [facility] and had wound repaired. He came here on the for bleeding and seems to have stopped. Returns today for bleeding again. States he was just sitting there when it happened. Denies walking on his foot. Denies increased pain, redness or fever. He is on antibiotics and is taking those as directed. Nursing reports that he did have some spurting bleeding initially. Wound was covered with dressing and secured with Gerald wrap by nursing. Timing/Duration: 4-5 Days Allergies and Home Medications Allergies Coded Allergies: No Known Drug Allergies (Unverified , 04/01/14) Patient Home Medication List Home Medication List Reviewed: Yes Review of Systems Review of Systems Constitutional: see HPI; No chills, No fever Respiratory: no symptoms reported Cardiovascular: no symptoms reported Skin: see HPI; No change in color; lesions Past Ddphuau-Nwqoeb-Rmupsm Hx Past Med/Social Hx: Reviewed Nursing Past Med/Soc Hx Patient Social History Alcohol Use: Denies Use Recreational Drug Use: No Smoking Status: Current Someday Smoker Type Used: Cigarettes 2nd Hand Smoke Exposure: Yes Recent Foreign Travel: No Contact w/Someone Who Travel: No Recent Infectious Disease Expo: No Recent Hopitalizations: No Physical Abuse: No Sexual Abuse: No Mistreated: No Fear: No Immunizations Up To Date Tetanus Booster (TDap): Less than 5yrs PED Vaccines UTD: Yes Seasonal Allergies Seasonal Allergies: No Past Medical History Surgeries: Yes (bmt) Adenoidectomy, Ear Surgery, Tonsillectomy Respiratory: No Cardiac: No Neurological: No Genitourinary: No Gastrointestinal: No Musculoskeletal: No Endocrine: No HEENT: No Cancer: No Psychosocial: No Integumentary: No Blood Disorders: No Family Medical History Reviewed Nursing Family Hx No Pertinent Family Hx Physical Exam Vital Signs Vital Signs - First Documented 12/10/19 23:55 Temp 37.2 Pulse 88 Resp 18 B/P (MAP) 132/99 (110) Pulse Ox 99 O2 Delivery Room Air Capillary Refill : Less Than 3 Seconds Height, Weight, BMI Height: 5'11.00" Weight: 175lbs. oz. 79.963264oz; 23.00 BMI Method:Stated General Appearance: No Apparent Distress, WD/WN Respiratory: Lungs Clear, Normal Breath Sounds Cardiovascular: Regular Rate, Rhythm, No Murmur Neurologic/Psychiatric: Alert, Oriented x3 Skin: Warm/Dry, Other (sutured wound to the sole of the right foot along the medial aspect. Wound dressing taken down that was placed by nursing on arrival. Wound is no longer bleeding. Sutures are intact and wound appears to be approximating. No signs of infection currently.) Progress/Results/Core Measures Suspected Sepsis Recent Fever Within 48 Hours: No Infection Criteria Present: None New/Unexplained Altered Menta: No Sepsis Screen: No Definite Risk SIRS Temperature: Pulse: 88 Respiratory Rate: 18 Blood Pressure 132 /99 Mean: 110 Results/Orders My Orders Orders - SATISH GAUTHIER MD Foot, Right, 3 View (12/11/19 00:59) Vital Signs/I&O 12/10/19 23:55 Temp 37.2 Pulse 88 Resp 18 B/P (MAP) 132/99 (110) Pulse Ox 99 O2 Delivery Room Air Capillary Refill : Less Than 3 Seconds Blood Pressure Mean: 110 Progress Note : Progress Note Seen and evaluated. X-ray right foot to verify lack of foreign body as patient states he thinks he stepped on glass. X-ray was negative. Full was cleaned and antibiotic was placed over wound and bulky dressing was placed secured by nursing. Tolerated well. No indication for further evaluation of the wound or exploration at this point. Patient is to continue antibiotics. He is to follow- up next week for suture removal which was initially on Sunday but I have recommended that he go till Sunday. I have instructed him further to not put any pressure on that foot including walking on the foot. He verbalizes understanding. Discharged home with return precautions. Patient verbalize understanding of instructions and agreement with him. Departure Impression Primary Impression: Visit for wound check Disposition: HOME, SELF-CARE Condition: Stable Departure-Patient Inst. Decision time for Depature: 01:18 Referrals: NO,LOCAL PHYSICIAN (PCP/Family) Primary Care Physician Patient Instructions: Wound Care (DC) Add. Discharge Instructions: All discharge instructions reviewed with patient and/or family. Voiced understanding. Keep dressing in place for the next 2 days and then you may remove. You may continue antibiotic ointment and dressing over wound after that. It is very important that you do not walk on that foot or put any pressure on the wound as this will cause bleeding. Keep foot elevated as best you can tonight. Follow-up with your Dr. in a few days for recheck as needed. Sutures out next 12/17/19. Continue medications as previously prescribed. SATISH GAUTHIER MD Dec 11, 2019 01:12
[2019-12-11 01:23] VITALS: BP 132/67
--- NOTE | 2019-12-11 06:24 | Diagnostic Imaging Report ---
INDICATION: Laceration bottom of foot. 3 views right foot. FINDINGS: There are no radiopaque foreign bodies. There is a bony defect along the base of the proximal aspect of the great toe on the medial side. This appears chronic and corticated consistent with old trauma. No other changes are seen that would indicate acute fractures. No soft tissue swelling. IMPRESSION: No acute abnormalities demonstrated. Dictated by: Dictated on workstation # [id number]
== END 2019-12-11 01:23 | disposition home or self-care (01) ==
LOC: EDUNIT# 23:51 → ER 23:53
DX: S91.311D Laceration without foreign body, right foot, subsequent encounter (principal); F17.210 Nicotine dependence, cigarettes, uncomplicated; W25.XXXD Contact with sharp glass, subsequent encounter
CPT/HCPCS: 73630

== ENCOUNTER 2019-12-15 02:22 | Emergency (ER) | payer MEDICAID ==
[~2019-12-15] VITALS: Ht 187.9 cm; Wt 82.0 kg
[~2019-12-15 02:22] MED LIST changes: +CEPH500C; +HYDR-83; +NAPR-915
[2019-12-15] MEDS ORDERED: RX-TRIMETH/SULFA. 160-800 MG (BACTRIM DS) TAB PPK#2 PO STA (03:34)
[2019-12-15] MEDS ORDERED: SULF1TAB35 PO (03:39)
--- NOTE | 2019-12-15 03:41 | ED Integumentary General ---
General Chief Complaint: Skin/Wound Problems Stated Complaint: R FOOT STITCHES POPPED Nursing Triage Note: PATIENT HAD STICHES LACED ON THE AT [facility]. TONIGHT "3 OF MY OSWALDO POPPED". SKIN IS NOTED TO HAVE SIGNIFICANT AMOUNT OF DIRT AND DRIED BLOOD. PAIN RATING OF 7/10 IN RIGHT ANKLE AND HEEL. ALERT AND ORIENTED X4. CALL LIGHT IN REACH. Source: patient, old records History of Present Illness Date Seen by Provider: Dec 15, 2019 Time Seen by Provider: 03:28 Initial Comments PT ARRIVES VIA POV FROM HOME PT STATES HE CUT THE BOTTOM OF HIS RIGHT FOOT ON A PIECE OF GLASS ON 12/05/19 AND HAD IT REPAIRED IN [facility] ER. 7 SUTURES SEEN HERE ON 12/06 AND 12/09 FOR BLEEDING FROM THE WOUND HAS BEEN ON KEFLEX SINCE THEN. HAS ALSO BEEN ON CRUTCHES ON ER VISIT ON 12/10/19, HE HAD XRAYS DONE WHICH DID NOT SHOW ANY FOREIGN BODY PRESENTS TONIGHT, BECAUSE HE STATES 3 STITCHES JUST SUDDENLY "CAME OUT" "WHILE I WAS JUST SITTING THERE THEY JUST CAME OUT" PT CLAIMS HE DID NOT TRY TO ATTEMPT TO REMOVE THEM HIMSELF, AND DENIES WALKING ON HIS FOOT OR ANY NEW INJURY NO INCREASED PAIN, AND NO DRAINAGE FROM THE WOUND. PT IS NOT DIABETIC OR HAVE ANY CHRONIC HEALTH PROBLEMS PCP: [facility], JANNETTE LIRA Allergies and Home Medications Allergies Coded Allergies: No Known Drug Allergies (Unverified , 04/01/14) Home Medications Sulfamethoxazole/Trimethoprim 1 Each Tablet, 1 EACH PO BID Prescribed by: RADHA MOLINA on 12/15/19 0339 Patient Home Medication List Home Medication List Reviewed: Yes Review of Systems Review of Systems Constitutional: no symptoms reported Skin: see HPI Psychiatric/Neurological: No Symptoms Reported Past Biaipeu-Zmgmxc-Eijuze Hx Past Med/Social Hx: Reviewed and Corrections made Patient Social History Alcohol Use: Denies Use Recreational Drug Use: No Smoking Status: Current Everyday Smoker Type Used: Cigarettes 2nd Hand Smoke Exposure: Yes Recent Foreign Travel: No Contact w/Someone Who Travel: No Recent Infectious Disease Expo: No Recent Hopitalizations: No Physical Abuse: No Sexual Abuse: No Mistreated: No Fear: No Immunizations Up To Date Tetanus Booster (TDap): Less than 5yrs PED Vaccines UTD: Yes Seasonal Allergies Seasonal Allergies: No Past Medical History Surgeries: Yes (BMT'S ) Adenoidectomy, Ear Surgery, Tonsillectomy Respiratory: No Cardiac: No Neurological: No Genitourinary: No Gastrointestinal: No Musculoskeletal: No Endocrine: No HEENT: No Cancer: No Psychosocial: No Integumentary: No Blood Disorders: No Family Medical History No Pertinent Family Hx Physical Exam Vital Signs Vital Signs - First Documented 12/15/19 02:58 Temp 37.0 Pulse 80 Resp 20 B/P (MAP) 132/73 (92) Pulse Ox 99 Capillary Refill : Less Than 3 Seconds General Appearance: WD/WN, no apparent distress Extremities: other (SEE BELOW) Neurologic/Psychiatric: no motor/sensory deficits, alert, normal mood/affect Skin: normal color, warm/dry, other (PLANTAR ASPECT/ARCH OF RIGHT FOOT WITH A PPROXIMATELY 6 CM LACERATION WITH 4 INTACT SUTURES, WITH EVIDENCE OF 3 SUTURES NOW MISSING, WITH WOUND DEHISCENCE AT THE SITE OF MISSING SUTURES. MILD OOZING OF BLOOD. NO ERYTHEMA, NO SWELLING. NO PURULENT DRAINAGE. NO STREAKS. NO EVIDENCE OF FOREIGN BODY. MOTOR/SENSORY/VASCULR INTACT. ) Progress/Results/Core Measures Results/Orders Micro Results Microbiology 12/15/19 Gram Stain - Final, Resulted 12/15/19 Wound Culture, Resulted Pending My Orders Orders - RADHA MOLINA DO Wound Culture (12/15/19 03:34) Rx-Trimeth/Sulfameth Ds Tab (Rx-Bactrim/ (12/15/19 03:34) Wound Dressing-Ed (12/15/19 03:34) Vital Signs/I&O 12/15/19 12/15/19 02:58 03:52 Temp 37.0 Pulse 80 64 Resp 20 18 B/P (MAP) 132/73 (92) 134/76 (92) Pulse Ox 99 100 Blood Pressure Mean: 92 Departure Impression Primary Impression: Wound dehiscence, traumatic injury repair Disposition: 01 HOME, SELF-CARE Condition: Stable Departure-Patient Inst. Referrals: NO,LOCAL PHYSICIAN (PCP) Primary Care Physician ESTHER LIRA (Family) Primary Care Physician Patient Instructions: Wound Care, Wound Dehiscence (DC) Add. Discharge Instructions: CLEAN WOUND TWICE A DAY WITH ANTIBACTERIAL SOAP AND WATER ON A Q-TIP, OTHERWISE KEEP CLEAN AND DRY APPLY FRESH DRESSING TWICE A DAY AFTER CLEANING IT STOP KEFLEX. 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 Voiced understanding. Scripts Sulfamethoxazole/Trimethoprim (Bactrim Ds Tablet) 1 Each Tablet 1 EACH PO BID, #20 TAB Prov: RADHA MOLINA DO 12/15/19 RADHA MOLINA DO Dec 15, 2019 03:41
[2019-12-15 03:52] VITALS: BP 134/76
== END 2019-12-15 03:46 | disposition home or self-care (01) ==
LOC: EDUNIT# 02:22 → ER 02:24
DX: T81.33XA Disruption of traumatic injury wound repair, initial encounter (principal); F17.210 Nicotine dependence, cigarettes, uncomplicated
CPT/HCPCS: 87070; 87205; 99283

== ENCOUNTER 2020-08-16 11:38 | Emergency (ER) | payer MEDICAID ==
[~2020-08-16] VITALS: Ht 187.9 cm; Wt 81.6 kg
[~2020-08-16 11:38] MED LIST changes: +ACHD5005; -HYDR-83
[2020-08-16] MEDS ORDERED: LACTATED RINGERS 1,000 ML IV ONE ×2 (12:00)
[2020-08-16] MEDS ORDERED: KETOROLAC 30 MG/ML VIAL IVP ONE (12:00)
[2020-08-16] MEDS ORDERED: CEFEPIME INJECTION 1,000 MG in WATER (STERILE) FOR INJECTION 10 ML IV ONE (12:00)
[2020-08-16 12:02] LABS: BASOPHILS % (AUTO) 0 % (0-10); EOSINOPHILS % (AUTO) 0 % (0-10); HEMATOCRIT 42 % (40-54); HEMOGLOBIN 14.3 g/dL (13.3-17.7); LYMPHOCYTES # (AUTO) 0.7 10^3/uL (1.0-4.0); LYMPHOCYTES % (AUTO) 11 % (12-44); MEAN CORPUSCULAR HEMOGLOBIN 28 pg (25-34); MEAN CORPUSCULAR HGB CONC 34 g/dL (32-36); MEAN CORPUSCULAR VOLUME 84 fL (80-99); MEAN PLATELET VOLUME 10.7 fL (9.0-12.2); MONOCYTES # (AUTO) 0.9 10^3/uL (0.0-1.0); MONOCYTES % (AUTO) 15 % (0-12); NEUTROPHILS # (AUTO) 4.5 10^3/uL (1.8-7.8); NEUTROPHILS % (AUTO) 73 % (42-75); PLATELET COUNT 184 10^3/uL (130-400); WHITE BLOOD COUNT 6.2 10^3/uL (4.3-11.0)
[2020-08-16 12:08] LABS: ALBUMIN 4.2 GM/DL (3.2-4.5); INR 1.1 (0.8-1.4); PROTHROMBIN TIME PATIENT 14.3 SEC (12.2-14.7)
[2020-08-16 12:09] LABS: CHLORIDE 100 MMOL/L (98-107); POTASSIUM 3.6 MMOL/L (3.6-5.0); SODIUM 134 MMOL/L (135-145)
[2020-08-16 12:10] LABS: CALCIUM 8.6 MG/DL (8.5-10.1)
[2020-08-16 12:11] LABS: GLUCOSE 128 MG/DL (70-105); TOTAL PROTEIN 7.5 GM/DL (6.4-8.2)
[2020-08-16 12:12] LABS: CARBON DIOXIDE 24 MMOL/L (21-32)
[2020-08-16 12:13] LABS: BILIRUBIN,TOTAL 0.9 MG/DL (0.1-1.0)
[2020-08-16 12:14] LABS: ALKALINE PHOSPHATASE 69 U/L (40-136)
[2020-08-16 12:15] LABS: CREATININE SERUM 1.08 MG/DL (0.60-1.30); GFR ESTIMATED > 60
[2020-08-16 12:16] LABS: BUN/CREATININE RATIO 13
[2020-08-16 12:18] LABS: ALANINE AMINOTRANSFERASE 19 U/L (0-55)
[2020-08-16 13:00] LABS: BILIRUBIN,URINE NEGATIVE (NEGATIVE); CLARITY,URINE CLEAR; COLOR,URINE YELLOW; GLUCOSE, URINE (UA) TRACE (NEGATIVE); KETONES,URINE 1+ (NEGATIVE); LEUKOCYTE ESTERASE ,URINE NEGATIVE (NEGATIVE); NITRITE,URINE NEGATIVE (NEGATIVE); PROTEIN,URINE 1+ (NEGATIVE)
--- NOTE | 2020-08-16 13:07 | Diagnostic Imaging Report ---
CHEST 1 VIEW, AP/PA ONLY Indication: Sepsis, shortness of air and loose stools Comparison: CT chest of 04/01/2014 Findings: No focal airspace disease in the visualized lungs. Please note that the posterior lower lobes are poorly evaluated by portable radiography. No pleural effusion or pneumothorax. Normal cardiomediastinal silhouette. Impression: 1. No acute cardiopulmonary process by portable radiography. Dictated by: Dictated on workstation # [id number]
[2020-08-16 13:11] LABS: BACTERIA,URINE TRACE /HPF; SQUAMOUS EPITHELIAL CELL,UR 0-2 /HPF
--- NOTE | 2020-08-16 15:26 | ED Cough/URI ---
General Chief Complaint: Cough/Cold/Flu Symptoms Stated Complaint: FEVER Nursing Triage Note: PT BROUGHT IN BY [facility] FROM HOME WITH COMPLAINT OF SEVERE HEADACHE, SOA, AND LOOSE STOOL THAT STARTED SUNDAY. Sepsis Screen: No Definite Risk Source: patient Exam Limitations: no limitations History of Present Illness Date Seen by Provider: Aug 16, 2020 Time Seen by Provider: 14:56 Initial Comments Patient presents ER by private conveyance with chief complaint of 2 days of body aches, subjective fevers and chills, sore throat. No nausea vomiting, diarrhea, abdominal pain, cough or shortness of air. No known sick contacts. He has not been tested for anything in the past 2 weeks. He had his tonsils out surgically. Allergies and Home Medications Allergies Coded Allergies: No Known Drug Allergies (Unverified , 04/01/14) Home Medications Sulfamethoxazole/Trimethoprim 1 Each Tablet, 1 EACH PO BID Prescribed by: RADHA MOLINA on 12/15/19 0339 Patient Home Medication List Home Medication List Reviewed: Yes Review of Systems Review of Systems Constitutional: chills, fever, malaise EENTM: throat pain; No ear discharge, No ear pain, No nose congestion Respiratory: No cough, No short of breath Cardiovascular: No chest pain, No edema Gastrointestinal: No abdominal pain, No constipation, No nausea Genitourinary: No discharge, No dysuria Musculoskeletal: No back pain, No joint pain All Other Systems Reviewed Negative Unless Noted: Yes Past Ofkfzjc-Evtmwi-Dtlbuy Hx Patient Social History Alcohol Use: Denies Use Smoking Status: Current Everyday Smoker Type Used: Cigarettes, Electronic/Vapor 2nd Hand Smoke Exposure: Yes Recent Infectious Disease Expo: No Recent Hopitalizations: No Immunizations Up To Date Tetanus Booster (TDap): Less than 5yrs PED Vaccines UTD: Yes Seasonal Allergies Seasonal Allergies: No Past Medical History Surgeries: Yes (BMT'S ) Adenoidectomy, Ear Surgery, Tonsillectomy Respiratory: No Cardiac: No Neurological: No Genitourinary: No Gastrointestinal: No Musculoskeletal: No Endocrine: No HEENT: No Cancer: No Psychosocial: No Integumentary: No Blood Disorders: No Family Medical History No Pertinent Family Hx Physical Exam Vital Signs - First Documented 08/16/20 11:43 Temp 38.6 Pulse 109 Resp 20 B/P (MAP) 134/87 (103) Pulse Ox 100 O2 Delivery Room Air Capillary Refill : Less Than 3 Seconds Height: 5'11.00" Weight: 175lbs. oz. 79.576690ty; 23.00 BMI Method:Stated General Appearance: WD/WN, mild distress Eyes: Bilateral Eye Normal Inspection, Bilateral Eye PERRL, Bilateral Eye EOMI HEENT: PERRL/EOMI, TMs normal, pharyngeal erythema (With swollen tissues and pustules) Neck: non-tender, full range of motion, supple, normal inspection Respiratory: chest non-tender, lungs clear, normal breath sounds, no respiratory distress, no accessory muscle use Cardiovascular: normal peripheral pulses, regular rate, rhythm Neurologic/Psychiatric: alert, normal mood/affect, oriented x 3 Skin: normal color, warm/dry Focused Exam Lactate Level 08/16/20 11:33: Lactic Acid Level 2.16*H 08/16/20 13:50: Lactic Acid Level 1.41 Lactic Acid Level Laboratory Tests Test 08/16/20 11:33 08/16/20 13:50 Lactic Acid Level 2.16 MMOL/L (0.50-2.00) *H 1.41 MMOL/L (0.50-2.00) Progress/Results/Core Measures Suspected Sepsis Recent Fever Within 48 Hours: No Infection Criteria Present: None New/Unexplained Altered Menta: No Sepsis Screen: No Definite Risk SIRS Temperature: Pulse: 109 Respiratory Rate: 20 Laboratory Tests 08/16/20 11:33: White Blood Count 6.2 Blood Pressure 134 /87 Mean: 103 08/16/20 11:33: Lactic Acid Level 2.16*H 08/16/20 13:50: Lactic Acid Level 1.41 Laboratory Tests 08/16/20 11:33: Creatinine 1.08, INR Comment 1.1, Platelet Count 184, Total Bilirubin 0.9 Results/Orders Lab Results Laboratory Tests Test 08/16/20 11:33 08/16/20 11:35 08/16/20 11:40 08/16/20 13:50 Range/Units White Blood Count 6.2 4.3-11.0 10^3/uL Red Blood Count 5.05 4.30-5.52 10^6/uL Hemoglobin 14.3 13.3-17.7 g/dL Hematocrit 42 40-54 % Mean Corpuscular Volume 84 80-99 fL Mean Corpuscular Hemoglobin 28 25-34 pg Mean Corpuscular Hemoglobin Concent 34 32-36 g/dL Red Cell Distribution Width 12.5 10.0-14.5 % Platelet Count 184 130-400 10^3/uL Mean Platelet Volume 10.7 9.0-12.2 fL Immature Granulocyte % (Auto) 0 % Neutrophils (%) (Auto) 73 42-75 % Lymphocytes (%) (Auto) 11 L 12-44 % Monocytes (%) (Auto) 15 H 0-12 % Eosinophils (%) (Auto) 0 0-10 % Basophils (%) (Auto) 0 0-10 % Neutrophils # (Auto) 4.5 1.8-7.8 10^3/uL Lymphocytes # (Auto) 0.7 L 1.0-4.0 10^3/uL Monocytes # (Auto) 0.9 0.0-1.0 10^3/uL Eosinophils # (Auto) 0.0 0.0-0.3 10^3/uL Basophils # (Auto) 0.0 0.0-0.1 10^3/uL Immature Granulocyte # (Auto) 0.0 0.0-0.1 10^3/uL Prothrombin Time 14.3 12.2-14.7 SEC INR Comment 1.1 0.8-1.4 Activated Partial Thromboplast Time 37 H 24-35 SEC Sodium Level 134 L 135-145 MMOL/L Potassium Level 3.6 3.6-5.0 MMOL/L Chloride Level 100 98-107 MMOL/L Carbon Dioxide Level 24 21-32 MMOL/L Anion Gap 10 5-14 MMOL/L Blood Urea Nitrogen 14 7-18 MG/DL Creatinine 1.08 0.60-1.30 MG/DL Estimat Glomerular Filtration Rate > 60 BUN/Creatinine Ratio 13 Glucose Level 128 H 70-105 MG/DL Lactic Acid Level 2.16 *H 1.41 0.50-2.00 MMOL/L Calcium Level 8.6 8.5-10.1 MG/DL Corrected Calcium 8.4 L 8.5-10.1 MG/DL Total Bilirubin 0.9 0.1-1.0 MG/DL Aspartate Amino Transf (AST/SGOT) 18 5-34 U/L Alanine Aminotransferase (ALT/SGPT) 19 0-55 U/L Alkaline Phosphatase 69 40-136 U/L Total Protein 7.5 6.4-8.2 GM/DL Albumin 4.2 3.2-4.5 GM/DL Urine Color YELLOW Urine Clarity CLEAR Urine pH 6.0 5-9 Urine Specific [place] >=1.030 1.016-1.022 Urine Protein 1+ H NEGATIVE Urine Glucose (UA) TRACE H NEGATIVE Urine Ketones 1+ H NEGATIVE Urine Nitrite NEGATIVE NEGATIVE Urine Bilirubin NEGATIVE NEGATIVE Urine Urobilinogen 2.0 < = 1.0 MG/DL Urine Leukocyte Esterase NEGATIVE NEGATIVE Urine RBC (Auto) TRACE-I NEGATIVE Urine RBC 2-5 H /HPF Urine WBC NONE /HPF Urine Squamous Epithelial Cells 0-2 /HPF Urine Crystals NONE /LPF Urine Bacteria TRACE /HPF Urine Casts NONE /LPF Urine Mucus MODERATE H /LPF Urine Culture Indicated CULTURE PENDING Coronavirus 2019 (JHONNY) Negative Negative Test 08/16/20 15:09 Range/Units Group A Streptococcus Screen POSITIVE H NEGATIVE Micro Results Microbiology 08/16/20 Influenza Types A,B Antigen (KENYATTA) - Final, Complete My Orders Orders - AAMIR ELLIS Influenza A And B Antigens (08/16/20 11:53) Covid 19 Inhouse Test (08/16/20 11:53) Cbc With Automated Diff (08/16/20 11:55) Comprehensive Metabolic Panel (08/16/20 11:55) Blood Culture (08/16/20 11:55) Sputum Culture (08/16/20 11:55) Urinalysis (08/16/20 11:55) Urine Culture (08/16/20 11:55) Protime With Inr (08/16/20 11:55) Partial Thromboplastin Time (08/16/20 11:55) Chest 1 View, Ap/Pa Only (08/16/20 11:55) Ed Iv/Invasive Line Start (08/16/20 11:55) Ed Iv/Invasive Line Start (08/16/20 11:55) Vital Signs Adult Sepsis Patie Q15M (08/16/20 11:55) O2 (08/16/20 11:55) Remove Rings In Anticipation O (08/16/20 11:55) Lactic Acid Analyzer (08/16/20 11:55) Lactated Ringers (Lr 1000 Ml Iv Solution (08/16/20 12:00) Cefepime Injection (Maxipime Injection) (08/16/20 12:00) Lactated Ringers (Lr 1000 Ml Iv Solution (08/16/20 12:00) Ketorolac Injection (Toradol Injection) (08/16/20 12:00) Coronavirus Sars-Cov-2 So 2018 (08/16/20 11:40) Rapid Strep A Screen (08/16/20 15:12) Medications Given in ED Current Medications Medications Dose Ordered Sig/Rosemarie Route Start Time Stop Time Status Last Admin Dose Admin Cefepime HCl 1000 mg/Sterile Water 10 ml @ 200 mls/hr ONCE ONCE IV 08/16/20 12:00 08/16/20 12:02 DC 08/16/20 12:23 200 MLS/HR Ketorolac Tromethamine 30 mg ONCE ONCE IVP 08/16/20 12:00 08/16/20 12:01 DC 08/16/20 12:25 30 MG Lactated Ringer's 1,000 ml @ 0 mls/hr Q0M ONCE IV 08/16/20 12:00 08/16/20 12:01 DC 08/16/20 12:26 1,000 MLS/HR Vital Signs/I&O 08/16/20 11:43 Temp 38.6 Pulse 109 Resp 20 B/P (MAP) 134/87 (103) Pulse Ox 100 O2 Delivery Room Air Capillary Refill : Less Than 3 Seconds Blood Pressure Mean: 103 Progress Note : Time: 15:23 Progress Note Negative for Covid and influenza. A send out Covid was ordered. Rapid strep is still pending. Rest of his labs are not significantly alarming. Likely he has a viral syndrome. We have discussed conservative management. The rapid strep will decide whether we put him on outpatient antibiotics. Diagnostic Imaging Diagonstic Imaging: Xray Plain Films/CT/US/NM/MRI: chest Comments [facility]. [place], [place] NAME: PRINCE TORRES [facility] REC#: [id number] PT STATUS: REG ER : 2000 PHYSICIAN: AAMIR ELLIS MD ADMIT DATE: 08/16/20/ER Signed Date of Exam:08/16/20 CHEST 1 VIEW, AP/PA ONLY CHEST 1 VIEW, AP/PA ONLY Indication: Sepsis, shortness of air and loose stools Comparison: CT chest of 04/01/2014 Findings: No focal airspace disease in the visualized lungs. Please note that the posterior lower lobes are poorly evaluated by portable radiography. No pleural effusion or pneumothorax. Normal cardiomediastinal silhouette. Impression: 1. No acute cardiopulmonary process by portable radiography. Dictated by: Dictated on workstation # [id number] Dict: 08/16/20 1305 Trans: 08/16/20 1305 [facility] [id number] Interpreted by: TIA TORREZ MD Electronically signed by: TIA TORREZ MD 08/16/20 1305 Reviewed: Reviewed by Me Departure Impression Primary Impression: Acute streptococcal pharyngitis Disposition: HOME, SELF-CARE Condition: Stable Departure-Patient Inst. Decision time for Depature: 15:36 Referrals: NO,LOCAL PHYSICIAN (PCP) Primary Care Physician ESTHER LIRA (Family) Primary Care Physician Patient Instructions: Strep Throat (DC) Add. Discharge Instructions: Salt water gargles as often as necessary to reduce the swelling in your throat so you can drink plenty of fluids. Tylenol 1000 mg every 8 hours as necessary for pain or fever. Ibuprofen 800 mg every 8 hours as necessary for pain and/or fever. Amoxicillin 1 capsule 500 mg twice a day for the next 10 days. Please take to completion to prevent future complications related to strep throat. All discharge instructions reviewed with patient and/or family. Voiced understanding. Scripts Amoxicillin (Amoxicillin) 500 Mg Capsule 500 MG PO BID for 10 Days, #20 CAP 0 Refills Prov: AAMIR ELLIS 08/16/20 AAMIR ELLIS Aug 16, 2020 15:26
[2020-08-16] MEDS ORDERED: AMOX500C2 PO (15:37)
[2020-08-16 16:24] VITALS: BP 116/58
== END 2020-08-16 16:24 | disposition home or self-care (01) ==
LOC: EDUNIT# 11:38 → ER 11:39
DX: J02.0 Streptococcal pharyngitis (principal); F17.210 Nicotine dependence, cigarettes, uncomplicated; F17.290 Nicotine dependence, other tobacco product, uncomplicated; Z20.822 Contact with and (suspected) exposure to COVID-19
CPT/HCPCS: 36415; 71045; 80053; 81000; 83605; 85025; 85610; 85730; 87040; 87088; 87430; 87635; 87804

== ENCOUNTER 2020-08-19 10:27 | Emergency (ER) | payer MEDICAID ==
[~2020-08-19] VITALS: Ht 187.9 cm; Wt 81.8 kg
--- NOTE | 2020-08-19 11:00 | ED General ---
General Chief Complaint: Oral/Throat Problems Stated Complaint: VOMITTING BLOOD Nursing Triage Note: AMB TO WITH FEMALE. WAS SEEN IN ED SUNDAY DX WITH STREP PLACED ON AMOXIL. TODAY STARTED SPITTING UP BLOOD. Nursing Sepsis Screen: No Definite Risk Source of Information: Patient, Family Exam Limitations: No Limitations History of Present Illness Date Seen by Provider: Aug 19, 2020 Time Seen by Provider: 11:00 Initial Comments Patient is a 20-year-old male who presents to the emergency department today with a chief complaint of possibly coughing up some blood today. He has been treated for the last several days for strep throat with amoxicillin. He states that he was clearing his throat and coughed up some mucus that had a small blood clot in it. He states he continues to have a sore throat. He is gargling with warm salt water. He denies fevers or chills. He states it still little painful to swallow. No difficulty breathing or shortness of breath. No chest pain. No abdominal pain. No nausea, vomiting. Patient states this only happened one time. All other review of systems reviewed and negative except as stated Timing/Duration: 1-3 Hours Severity: Mild Associated Systoms: Denies Symptoms Allergies and Home Medications Allergies Coded Allergies: No Known Drug Allergies (Unverified , 04/01/14) Home Medications Amoxicillin 500 Mg Capsule, 500 MG PO BID Prescribed by: AAIMR ELLIS on 08/16/20 1537 Sulfamethoxazole/Trimethoprim 1 Each Tablet, 1 EACH PO BID Prescribed by: RADHA MOLINA on 12/15/19 0339 Patient Home Medication List Home Medication List Reviewed: Yes Review of Systems Review of Systems Constitutional: see HPI EENTM: throat pain Respiratory: no symptoms reported Cardiovascular: no symptoms reported Gastrointestinal: no symptoms reported Genitourinary: no symptoms reported Musculoskeletal: no symptoms reported Skin: no symptoms reported All Other Systems Reviewed Negative Unless Noted: Yes Past Bcdoolu-Icilzz-Utqssq Hx Patient Social History Alcohol Use: Denies Use Smoking Status: Never a Smoker Type Used: Cigarettes, Electronic/Vapor 2nd Hand Smoke Exposure: Yes Recent Infectious Disease Expo: No Recent Hopitalizations: No Immunizations Up To Date Tetanus Booster (TDap): Less than 5yrs PED Vaccines UTD: Yes Seasonal Allergies Seasonal Allergies: No Past Medical History Surgeries: Yes (BMT'S ) Adenoidectomy, Ear Surgery, Tonsillectomy Respiratory: No Cardiac: No Neurological: No Genitourinary: No Gastrointestinal: No Musculoskeletal: No Endocrine: No HEENT: No Cancer: No Psychosocial: No Integumentary: No Blood Disorders: No Family Medical History No Pertinent Family Hx Physical Exam Vital Signs Vital Signs - First Documented 08/19/20 10:40 Temp 37.2 Pulse 85 Resp 18 B/P (MAP) 129/72 (91) Pulse Ox 98 Capillary Refill : Less Than 3 Seconds Height, Weight, BMI Height: 5'11.00" Weight: 175lbs. oz. 79.059284sz; 23.00 BMI Method:Stated General Appearance: No Apparent Distress, WD/WN Eyes: Right Eye Abnormal EOM (Congenital); Bilateral Eye Normal Inspection, Bilateral Eye PERRL HEENT: Other (Postnasal drip noted, mild to moderate inflammation at the tonsillar pillars with residual tonsillar tissue present in the crypts bilaterally; no sign of active bleeding) Neck: Full Range of Motion, Normal Inspection, Lymphadenopathy (L), Lymphadenopathy (R) Respiratory: Lungs Clear, Normal Breath Sounds Cardiovascular: Regular Rate, Rhythm Gastrointestinal: Normal Bowel Sounds Neurologic/Psychiatric: Alert, Oriented x3, Normal Mood/Affect Skin: Normal Color, Warm/Dry Progress/Results/Core Measures Suspected Sepsis Recent Fever Within 48 Hours: No Infection Criteria Present: None New/Unexplained Altered Menta: No Sepsis Screen: No Definite Risk SIRS Temperature: Pulse: 85 Respiratory Rate: 18 Blood Pressure 129 /72 Mean: 91 Results/Orders Vital Signs/I&O 08/19/20 10:40 Temp 37.2 Pulse 85 Resp 18 B/P (MAP) 129/72 (91) Pulse Ox 98 Capillary Refill : Less Than 3 Seconds Blood Pressure Mean: 91 Progress Note : Time: 11:17 Progress Note Ronnie is seen today with a chief complaint of blood in his sputum. He has a recent diagnosis of strep pharyngitis. Is being treated with amoxicillin. Terrell clinically looks well. He is not tachycardic or hypotensive. He has not had more than one episode of blood in his sputum. Patient states that it occurred when he was clearing his throat he coughed up a little blood clot. He is in no respiratory distress. He has not had a recurrence of the episodes. He has no clinical or objective findings to warrant further studies from the emergency department perspective. I do not believe that he has Boerhaave syndrome or a Katia-Perez tear or a coagulopathy. He does not appear anemic. No history of chronic liver disease. Patient and his mother have been reassured. He is counseled on continuing to gargle with warm salt water, and taking his medications. He verbalizes understanding. All questions are sought and answered. He is stable for discharge. Departure Impression Primary Impression: Pharyngitis Qualified Codes: J02.0 - Streptococcal pharyngitis Disposition: HOME, SELF-CARE Condition: Stable Departure-Patient Inst. Decision time for Depature: 11:14 Referrals: NO,LOCAL PHYSICIAN (PCP) Primary Care Physician ESTHER LIRA (Family) Primary Care Physician Patient Instructions: Sore Throat, Adult (DC) Add. Discharge Instructions: Drink plenty of fluids to stay well-hydrated. Continue to do warm salt water gargles 2-3 times daily for your throat pain. Finish up your antibiotics as directed. Come back to the emergency room for reevaluation if you have any persistent issues with blood when you cough or clear your throat. SHILOH MCLAUGHLIN MD Aug 19, 2020 11:00
[2020-08-19 11:25] VITALS: BP 116/71
== END 2020-08-19 11:29 | disposition home or self-care (01) ==
LOC: EDUNIT# 10:27 → ER 10:29
DX: J02.0 Streptococcal pharyngitis (principal); Z79.2 Long term (current) use of antibiotics; Z77.22 Contact with and (suspected) exposure to environmental tobacco smoke (acute) (chronic)
CPT/HCPCS: 99282

== ENCOUNTER 2020-12-12 15:04 | Emergency (ER) | payer MEDICAID ==
[~2020-12-12] VITALS: Ht 190.5 cm; Wt 81.8 kg
[2020-12-12 15:23] VITALS: BP 131/63
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
[2020-12-12] MEDS ORDERED: CEPH500T PO (16:04)
== END 2020-12-12 16:20 | disposition home or self-care (01) ==
LOC: EDUNIT# 15:04 → ER FS 15:11
DX: S90.821A Blister (nonthermal), right foot, initial encounter (principal); F17.210 Nicotine dependence, cigarettes, uncomplicated; F17.290 Nicotine dependence, other tobacco product, uncomplicated; V29.9XXA Motorcycle rider (driver) (passenger) injured in unspecified traffic accident, initial encounter
CPT/HCPCS: 99283

== ENCOUNTER 2021-01-25 21:43 | Emergency (ER) | payer MEDICAID ==
[~2021-01-25] VITALS: Ht 187 cm; Wt 81.8 kg
[~2021-01-25 21:43] MED LIST changes: +CEPH500T PO; -SULF1TAB35 PO; +SULF1TAB38 PO
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
--- NOTE | 2021-01-25 22:33 | Diagnostic Imaging Report ---
EXAMINATION: CT head and CT cervical spine without contrast. TECHNIQUE: Multiple contiguous axial images were obtained through the brain and cervical spine without the use of intravenous contrast. Sagittal and coronal reformations through the cervical spine were then performed. All CT scans use one or more of the following dose optimizing techniques: automated exposure control, MA and/or KvP adjustment based on patient size and exam type or iterative reconstruction. HISTORY: Fall and head pain COMPARISON: None available. FINDINGS: The grant-white matter differentiation is normal. No mass effect or midline shift. The ventricles are normal in size and configuration. Basilar cisterns are patent. There are no intra- or extra-axial fluid collections. A small focus of high attenuation associated with the right dura anteriorly is favored to represent a small calcification. The orbits are normal. Paranasal sinuses are normal. Mastoid air cells are clear. No soft tissue abnormality is seen. No osseus lesions or fractures are seen. The alignment of the cervical spine is normal. No fracture is seen. Vertebral body heights are normal. The craniocervical junction is normal. There is no degenerative disease in the cervical spine. There is no spinal canal stenosis. No soft tissue abnormality is seen in the neck. Limited views of the superior thorax are normal. IMPRESSION: 1. Small focus of high attenuation associated with the right dura anteriorly is favored to represent a small calcification. Consider short-term follow-up to ensure stability and that this does not represent a small amount of blood. 2. No cervical spine fracture. Dictated by: Dictated on workstation # [id number]
[2021-01-26 05:20] VITALS: BP 116/61
--- NOTE | 2021-01-26 06:14 | Diagnostic Imaging Report ---
PROCEDURE: CT head without contrast. TECHNIQUE: Multiple contiguous axial images were obtained through the brain without the use of intravenous contrast. Auto Exposure Controls were utilized during the CT exam to meet ALARA standards for radiation dose reduction. INDICATION: Fell with headache, six-hour follow-up. FINDINGS: Noncontrast CT scan of the head compared to CT scan from 10:10 PM on 01/25/2021. FINDINGS: Noncontrast CT scan of the head demonstrates stable tiny high density area along the right side of the falx anteriorly which is probably a calcification. This is unchanged from the previous exam. No other potential areas of hemorrhage are identified. There is no mass effect, midline shift or extra-axial fluid collections. Calcification along the superior aspect of both globes posteriorly is again identified. This has benign appearance. Ventricles, cortical sulci, and basilar cisterns are normal. Osseous structures appear normal. No fractures are seen. IMPRESSION: Stable CT scan of the head. The high density area seen along the right dura anteriorly is probably a calcification. Benign calcifications are present within the globes and appear symmetric. Dictated by: Dictated on workstation # [id number]
== END 2021-01-26 05:20 | disposition home or self-care (01) ==
LOC: EDUNIT# 21:43 → ER 21:46
DX: S06.0X0A Concussion without loss of consciousness, initial encounter (principal); S00.83XA Contusion of other part of head, initial encounter; Y04.2XXA Assault by strike against or bumped into by another person, initial encounter
CPT/HCPCS: 70450; 72125

== ENCOUNTER 2021-02-01 23:31 | Emergency (ER) | payer MEDICAID ==
[2021-02-01 23:49] VITALS: BP 124/73
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
[2021-02-02] MEDS ORDERED: KETOROLAC 60 MG/2 ML VIAL IM ONE (00:15)
== END 2021-02-02 00:33 | disposition home or self-care (01) ==
LOC: EDUNIT# 23:31 → ER 23:36
DX: F07.81 Postconcussional syndrome (principal); G44.309 Post-traumatic headache, unspecified, not intractable
CPT/HCPCS: 99284

== ENCOUNTER 2021-12-15 19:49 | Emergency (ER) | payer MEDICAID ==
[~2021-12-15] VITALS: Ht 188 cm; Wt 90.7 kg
[2021-12-15] MEDS ORDERED: NS IV 1000 ML 1,000 ML IV STA (20:18)
--- NOTE | 2021-12-15 20:22 | ED General ---
General Chief Complaint: General Problems/Pain Stated Complaint: VOMITING Nursing Triage Note: TO ED VIA POV AND AMBULATORY TO ROOM 9. PT STATES HE HAS MIGRAINE (HX OF THIS) AND HAS VOMITTED 4X SINCE 1300. Source of Information: Patient Exam Limitations: No Limitations (WASHINGTON GUSMAN) History of Present Illness Date Seen by Provider: Dec 15, 2021 Time Seen by Provider: 20:20 Initial Comments Patient is a 21-year-old male who presents ED with abdominal pain, vomiting and lower leg pain. Patient states symptoms started around 1:00 today. Patient states he vomited 4 times nonbilious without any hematemesis. Reports some lower abdominal discomfort described as more cramping. Reports cramping bilateral lower legs. Patient reports generalized weakness fatigue, tiredness. Patient states he has been urinating without any difficulties. Patient states he ate a pop tart this morning. Patient states he did go to work at [employer]. Patient states he feels tired at this time. Denies any fever, diarrhea, cough, runny nose, chest pain, shortness of breath, headache, dizziness, visual changes or ear pain. No known medical problems. (WASHINGTON GUSMAN) Allergies and Home Medications Allergies Coded Allergies: No Known Drug Allergies (Unverified , 04/01/14) Patient Home Medication List Home Medication List Reviewed: Yes (WASHINGTON GUSMAN) Amoxicillin (Amoxicillin) 500 Mg Capsule, 500 MG PO BID Prescribed by: AAMIR ELLIS on 08/16/20 1537 Cephalexin (Cephalexin) 500 Mg Capsule, (Reported) Entered as Reported by: TU MEDEIROS on 12/11/19 0005 Cephalexin (Cephalexin) 500 Mg Tablet, 500 MG PO TID Prescribed by: AFSANEH PATE on 12/12/20 1604 Hydrocodone/Acetaminophen (Hydrocodone-Acetamin 5-325 mg) 1 Each Tablet, (Reported) Entered as Reported by: TU MEDEIROS on 12/11/19 0005 Naproxen (Naproxen) 500 Mg Tablet, (Reported) Entered as Reported by: TU MEDEIROS on 12/11/19 0005 Ondansetron (Ondansetron Odt) 4 Mg Tab.rapdis, 4 MG PO Q6H Prescribed by: HARLEY HICKEY on 6/23/22 2048 Sulfamethoxazole/Trimethoprim (Bactrim Ds Tablet) 1 Each Tablet, 1 EACH PO BID Prescribed by: RADHA MOLINA on 12/15/19 0339 Review of Systems Review of Systems Constitutional: chills, malaise, weakness EENTM: No blurred vision, No double vision, No mouth pain, No throat pain, No throat swelling Respiratory: No cough, No orthopnea, No short of breath Cardiovascular: No chest pain Gastrointestinal: abdominal pain; No diarrhea; nausea, vomiting Genitourinary: No decreased output, No discharge Musculoskeletal: No back pain, No joint pain; muscle pain (WASHINGTON GUSMAN) All Other Systems Reviewed Negative Unless Noted: Yes (WASHINGTON GUSMAN) Past Cxgjfds-Qjctvp-Yevvvr Hx Patient Social History Tobacco Use?: Yes Use of E-Cig and/or Vaping dev: Yes E-Cig or Vaping type used: Nicotine Substance use?: No Alcohol Use?: No (WASHINGTON GUSMAN) Immunizations Up To Date Tetanus Booster (TDap): Less than 5yrs PED Vaccines UTD: Yes (WASHINGTON GUSMAN) Seasonal Allergies Seasonal Allergies: No (WASHINGTON GUSMAN) Past Medical History Surgeries: Yes (BMT'S ) Adenoidectomy, Ear Surgery, Tonsillectomy Respiratory: No Cardiac: No Neurological: No Genitourinary: No Gastrointestinal: No Musculoskeletal: No Endocrine: No HEENT: No Cancer: No Psychosocial: No Integumentary: No Blood Disorders: No (WASHINGTON GUSMAN) Family Medical History No Pertinent Family Hx (WASHINGTON GUSMAN) Physical Exam Vital Signs Vital Signs - First Documented 12/15/21 20:10 Temp 36.7 Pulse 94 Resp 16 B/P (MAP) 148/77 (100) Pulse Ox 97 O2 Delivery Room Air (RADHA MOLINA DO) Vital Signs Capillary Refill : Less Than 3 Seconds (WASHINGTON GUSMAN) Height, Weight, BMI Height: 5'11.00" Weight: 175lbs. oz. 79.501688nt; 25.00 BMI Method:Stated General Appearance: No Apparent Distress, WD/WN Eyes: Bilateral Eye Normal Inspection, Bilateral Eye EOMI, Bilateral Eye Abnormal EOM HEENT: PERRL/EOMI, TMs Normal, Normal ENT Inspection, Pharynx Normal Neck: Full Range of Motion, Normal Inspection, Non Tender, Supple Respiratory: Chest Non Tender, Lungs Clear, Normal Breath Sounds, No Accessory Muscle Use, No Respiratory Distress Cardiovascular: Regular Rate, Rhythm, No Edema, No Gallop, No JVD Gastrointestinal: Normal Bowel Sounds, No Organomegaly, No Pulsatile Mass, Soft, Tenderness (Left lower quadrant tenderness. No right lower quadrant or right upper quadrant tenderness. Negative psoas sign. 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 Skin: Normal Color, Warm/Dry (WASHINGTON GUSMAN) Progress/Results/Core Measures Suspected Sepsis SIRS Temperature: Pulse: 94 Respiratory Rate: 16 Laboratory Tests 12/15/21 20:30: White Blood Count 6.0 Blood Pressure 148 /77 Mean: 100 Laboratory Tests 12/15/21 20:30: Creatinine 0.83, Platelet Count 218, Total Bilirubin 1.3H (WASHINGTON GUSMAN) Results/Orders Lab Results Laboratory Tests Test 12/15/21 20:27 12/15/21 20:30 Range/Units Influenza Type A (RT-PCR) Not Detected Not Detecte Influenza Type B (RT-PCR) Not Detected Not Detecte SARS-CoV-2 RNA (RT-PCR) Detected H Not Detecte White Blood Count 6.0 4.3-11.0 10^3/uL Red Blood Count 4.88 4.30-5.52 10^6/uL Hemoglobin 14.5 13.3-17.7 g/dL Hematocrit 42 40-54 % Mean Corpuscular Volume 87 80-99 fL Mean Corpuscular Hemoglobin 30 25-34 pg Mean Corpuscular Hemoglobin Concent 34 32-36 g/dL Red Cell Distribution Width 11.9 10.0-14.5 % Platelet Count 218 130-400 10^3/uL Mean Platelet Volume 10.1 9.0-12.2 fL Immature Granulocyte % (Auto) 0 % Neutrophils (%) (Auto) 82 H 42-75 % Lymphocytes (%) (Auto) 4 L 12-44 % Monocytes (%) (Auto) 12 0-12 % Eosinophils (%) (Auto) 1 0-10 % Basophils (%) (Auto) 0 0-10 % Neutrophils # (Auto) 4.9 1.8-7.8 10^3/uL Lymphocytes # (Auto) 0.2 L 1.0-4.0 10^3/uL Monocytes # (Auto) 0.7 0.0-1.0 10^3/uL Eosinophils # (Auto) 0.1 0.0-0.3 10^3/uL Basophils # (Auto) 0.0 0.0-0.1 10^3/uL Immature Granulocyte # (Auto) 0.0 0.0-0.1 10^3/uL Neutrophils % (Manual) 81 % Lymphocytes % (Manual) 6 % Monocytes % (Manual) 11 % Eosinophils % (Manual) 1 % Band Neutrophils 1 % Blood Morphology Comment NORMAL Sodium Level 139 135-145 MMOL/L Potassium Level 3.3 L 3.6-5.0 MMOL/L Chloride Level 105 98-107 MMOL/L Carbon Dioxide Level 23 21-32 MMOL/L Anion Gap 11 5-14 MMOL/L Blood Urea Nitrogen 7 7-18 MG/DL Creatinine 0.83 0.60-1.30 MG/DL Estimat Glomerular Filtration Rate 126 BUN/Creatinine Ratio 8 Glucose Level 104 70-105 MG/DL Calcium Level 9.2 8.5-10.1 MG/DL Corrected Calcium 8.9 8.5-10.1 MG/DL Total Bilirubin 1.3 H 0.1-1.0 MG/DL Aspartate Amino Transf (AST/SGOT) 14 5-34 U/L Alanine Aminotransferase (ALT/SGPT) 17 0-55 U/L Alkaline Phosphatase 75 40-136 U/L Total Protein 7.5 6.4-8.2 GM/DL Albumin 4.4 3.2-4.5 GM/DL (LORRI MOLINAA Parminder SHIN) Medications Given in ED Current Medications Medications Dose Ordered Sig/Rosemarie Route Start Time Stop Time Status Last Admin Dose Admin Ibuprofen 800 mg ONCE ONCE PO 12/15/21 21:30 12/15/21 21:31 DC 12/15/21 21:31 800 MG Ondansetron HCl 4 mg ONCE ONCE IVP 12/15/21 20:30 12/15/21 20:31 DC 12/15/21 20:33 4 MG (RADHA MOLINA DO) Vital Signs/I&O 12/15/21 12/15/21 20:10 21:33 Temp 36.7 36.7 Pulse 94 90 Resp 16 16 B/P (MAP) 148/77 (100) 129/101 Pulse Ox 97 98 O2 Delivery Room Air Room Air 12/15/21 23:59 Intake Total 1000 ml Balance 1000 ml (RADHA MOLINA DO) Vital Signs/I&O Capillary Refill : Less Than 3 Seconds (WASHINGTON GUSMAN) Blood Pressure Mean: 100 Departure Communication (PCP) Patient with vomiting today. Has some mild left lower quadrant tenderness. Negative rebound tenderness, psoas sign, Rovsing sign. No right lower quadrant or right upper quadrant tenderness. No surgical abdomen. Lab work was otherwise unremarkable. Patient was given a liter of fluid and Zofran with improvement of symptoms. COVID positive. Stable vital signs and shows no signs of respiratory distress. Patient appears much better at this time after IV fluid. Conservative treatment at this time. Recommend oral hydration, electrolytes. Will discharge with Zofran. Provided work note. Return precaution were discussed with patient. Patient has not been vaccinated. Discussed pulse ox at [facility] to monitor oxygen. If any worsening symptoms return back to ED for further evaluation e (WASHINGTON GUSMAN) Impression Primary Impression: Nausea & vomiting Disposition: 01 HOME, SELF-CARE Condition: Stable Departure-Patient Inst. Decision time for Depature: 20:47 (WASHINGTON GUSMAN) Referrals: ESTHER LIRA (PCP/Family) Primary Care Physician Patient Instructions: COVID-19 (DC) Scripts Ondansetron (Ondansetron Odt) 4 Mg Tab.rapdis 4 MG PO Q6H, #6 TAB Prov: WASHINGTON GUSMAN 12/15/21 Work/School Note: Work Release Form Date Seen in the Emergency Department: Dec 15, 2021 Return to Work: Dec 24, 2021 ATTENDING PHYSICIAN NOTE: I WAS PHYSICALLY PRESENT ER PHYSICIAN, BUT I WAS NOT INVOLVED IN ANY DECISION MAKING OR ANY CARE OF THIS PATIENT. (RADHA MOLINA DO) WASHINGTON GUSMAN Dec 15, 2021 20:22 RADHA MOLINA DO Dec 16, 2021 04:37
[2021-12-15] MEDS ORDERED: ONDANSETRON 4 MG/2 ML (SDV) Z0FRAN IVP ONE (20:30)
[2021-12-15 20:46] LABS: BASOPHILS % (AUTO) 0 % (0-10); EOSINOPHILS # (AUTO) 0.1 10^3/uL (0.0-0.3); EOSINOPHILS % (AUTO) 1 % (0-10); HEMATOCRIT 42 % (40-54); HEMOGLOBIN 14.5 g/dL (13.3-17.7); LYMPHOCYTES # (AUTO) 0.2 10^3/uL (1.0-4.0); LYMPHOCYTES % (AUTO) 4 % (12-44); MEAN CORPUSCULAR HEMOGLOBIN 30 pg (25-34); MEAN CORPUSCULAR HGB CONC 34 g/dL (32-36); MEAN CORPUSCULAR VOLUME 87 fL (80-99); MEAN PLATELET VOLUME 10.1 fL (9.0-12.2); MONOCYTES # (AUTO) 0.7 10^3/uL (0.0-1.0); MONOCYTES % (AUTO) 12 % (0-12); NEUTROPHILS # (AUTO) 4.9 10^3/uL (1.8-7.8); NEUTROPHILS % (AUTO) 82 % (42-75); PLATELET COUNT 218 10^3/uL (130-400)
[2021-12-15] MEDS ORDERED: ONDA4TAB11 PO (20:48)
[2021-12-15 21:06] LABS: ALBUMIN 4.4 GM/DL (3.2-4.5); POTASSIUM 3.3 MMOL/L (3.6-5.0)
[2021-12-15 21:07] LABS: CALCIUM 9.2 MG/DL (8.5-10.1)
[2021-12-15 21:09] LABS: TOTAL PROTEIN 7.5 GM/DL (6.4-8.2)
[2021-12-15 21:10] LABS: BILIRUBIN,TOTAL 1.3 MG/DL (0.1-1.0)
[2021-12-15 21:12] LABS: CREATININE SERUM 0.83 MG/DL (0.60-1.30)
[2021-12-15 21:27] LABS: BAND NEUTROPHILS 1 %; EOSINOPHILS % (MANUAL) 1 %; LYMPHOCYTES % (MANUAL) 6 %; MONOCYTES % (MANUAL) 11 %; NEUTROPHILS % (MANUAL) 81 %; RBC MORPH NORMAL
[2021-12-15] MEDS ORDERED: IBUPROFEN 800 MG (MOTRIN) TAB PO ONE (21:30)
[2021-12-15 21:33] VITALS: BP 129/101
== END 2021-12-15 21:33 | disposition home or self-care (01) ==
LOC: EDUNIT# 19:49 → ER 19:51
DX: U07.1 COVID-19 (principal); R11.2 Nausea with vomiting, unspecified; R10.32 Left lower quadrant pain; F17.290 Nicotine dependence, other tobacco product, uncomplicated; Z28.310 Unvaccinated for COVID-19
CPT/HCPCS: 36415; 80053; 85007; 85027; 87636; 99283

== ENCOUNTER 2021-12-17 18:57 | Emergency (ER) | payer MEDICAID ==
--- NOTE | 2021-12-17 19:16 | ED Cough/URI ---
General Stated Complaint: CP, COVID + Source: patient Exam Limitations: no limitations History of Present Illness Date Seen by Provider: Dec 17, 2021 Time Seen by Provider: 19:08 Initial Comments This is a 21-year-old male that presents to the emergency room by EMS for evaluation of cough and chest pain. He states that he was diagnosed with COVID- 19 on and he has had symptoms since then. He is also reporting generalized body aches and muscle pain. He has not attempted any therapy prior to arrival. He states that his chest pain is only when he coughs and that he is not having any shortness of breath with exertion. He does have a known exposure and she denies fever, evaluation, double vision, swelling Severity/Quality: moderate Allergies and Home Medications Allergies Coded Allergies: No Known Drug Allergies (Unverified , 04/01/14) Patient Home Medication List Home Medication List Reviewed: Yes Albuterol Sulfate (Proair Hfa) 1 Puff Puff, 2 PUFF IH Q4H Prescribed by: Brendan Washington on 12/17/211916 Amoxicillin (Amoxicillin) 500 Mg Capsule, 500 MG PO BID Prescribed by: AAMIR ELLIS on 08/16/20 1537 Cephalexin (Cephalexin) 500 Mg Capsule, (Reported) Entered as Reported by: TU MEDEIROS on 12/11/194 Cephalexin (Cephalexin) 500 Mg Tablet, 500 MG PO TID Prescribed by: AFSANEH PATE on 12/12/20 1604 Hydrocodone/Acetaminophen (Hydrocodone-Acetamin 5-325 mg) 1 Each Tablet, (Reported) Entered as Reported by: TU MEDEIROS on 12/11/19 0005 Naproxen (Naproxen) 500 Mg Tablet, (Reported) Entered as Reported by: TU MEDEIROS on 12/11/19 0005 Ondansetron (Ondansetron Odt) 4 Mg Tab.rapdis, 4 MG PO Q6H Prescribed by: HARLEY HICKEY on 12/15/212047 Promethazine/Dextromethorphan (Promethazine-Dm Syrup) 6.25 Mg-15 Mg/5 Ml Syrup, 5 ML PO Q6H PRN for COUGH Prescribed by: Brendan Washington on 12/17/211916 Sulfamethoxazole/Trimethoprim (Bactrim Ds Tablet) 1 Each Tablet, 1 EACH PO BID Prescribed by: RADHA MOLINA on 12/15/19 0339 Review of Systems Review of Systems Constitutional: malaise EENTM: nose congestion Respiratory: cough Cardiovascular: no symptoms reported Gastrointestinal: no symptoms reported Genitourinary: no symptoms reported Musculoskeletal: muscle pain Skin: no symptoms reported Psychiatric/Neurological: No Symptoms Reported Past Rahxhbm-Rqwrcy-Alhkgt Hx Patient Social History Use of E-Cig and/or Vaping dev: No Substance use?: No Alcohol Use?: No Immunizations Up To Date Tetanus Booster (TDap): Less than 5yrs PED Vaccines UTD: Yes Seasonal Allergies Seasonal Allergies: No Past Medical History Surgeries: Yes (BMT'S ) Adenoidectomy, Ear Surgery, Tonsillectomy Respiratory: No Cardiac: No Neurological: No Genitourinary: No Gastrointestinal: No Musculoskeletal: No Endocrine: No HEENT: No Cancer: No Psychosocial: No Integumentary: No Blood Disorders: No Family Medical History No Pertinent Family Hx Physical Exam Capillary Refill : Height: 5'11.00" Weight: 175lbs. oz. 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 He has a normal pulse. His lung sounds are clear. No extremity swelling or rash. Impression Primary Impression: COVID-19 virus infection Disposition: 01 HOME, SELF-CARE Condition: Stable Departure-Patient Inst. Decision time for Depature: 19:11 Referrals: ESTHER LIRA (PCP/Family) Primary Care Physician Patient Instructions: COVID-19 Overview Add. Discharge Instructions: Please return to the emergency room with any severe changes or worsening of your symptoms. Follow-up closely with your primary care provider. Scripts Promethazine/Dextromethorphan (Promethazine-Dm Syrup) 6.25 Mg-15 Mg/5 Ml Syrup 5 ML PO Q6H PRN for COUGH for 7 Days, #240 ML Prov: JULITO WASHINGTON 12/17/21 Albuterol Sulfate (PROAIR HFA) 1 Puff Puff 2 PUFF IH Q4H for Cough for 7 Days, #1 EA 1 PUFF = 90 MCG Prov: JULITO WASHINGTON 12/17/21 JULITO WASHINGTON Dec 17, 2021 19:16
[2021-12-17] MEDS ORDERED: RT-ALBUINH IH (19:17)
[2021-12-17] MEDS ORDERED: D-ME473S11 PO (19:17)
--- NOTE | 2021-12-17 19:42 | Diagnostic Imaging Report ---
INDICATION: Chest pain, Covid positive. EXAMINATION: Frontal chest was obtained at 7:24 p.m. COMPARISON: 08/16/2020. FINDINGS: Heart and mediastinal silhouette are normal in appearance. The lungs are clear. There is no pneumothorax or pleural fluid. IMPRESSION: Negative chest. Dictated by: Dictated on workstation # [id number]
[2021-12-17 20:08] VITALS: BP 137/55
== END 2021-12-17 20:08 | disposition home or self-care (01) ==
LOC: EDUNIT# 18:57 → ER 18:58
DX: U07.1 COVID-19 (principal); Z73.0 Burn-out
CPT/HCPCS: 71045

== ENCOUNTER 2022-04-10 01:41 | Emergency (ER) | payer MEDICAID ==
[~2022-04-10 01:41] MED LIST changes: +D-ME473S11 PO; +RT-ALBUINH IH
--- NOTE | 2022-04-10 01:57 | ED General ---
General Chief Complaint: Unresponsive Stated Complaint: UNRESPONSIVE Source of Information: EMS Exam Limitations: Intoxication History of Present Illness Date Seen by Provider: Apr 10, 2022 Time Seen by Provider: 01:45 Initial Comments PT ARRIVES VIA EMS FROM [facility] POLICE WERE CALLED TO THE SCENE FOR NOISE DISTURBANCE, ON ARRIVAL THEY FOUND PT LAYING INSIDE THE DOOR OF THE ENTRANCE TO APARTMENT COMPLEX, UNRESPONSIVE, WITH VOMITUS ON HIM, AND STRONG ODOR OF ETOH. EMS REPORT THAT THERE WAS NO ONE ELSE AT THE SCENE. NO EVIDENCE OF TRAUMA PT RESPONDS TO PAINFUL STIMULI NO SNOROUS BREATHING OR APNEA Allergies and Home Medications Allergies Coded Allergies: No Known Drug Allergies (Unverified , 04/01/14) Patient Home Medication List Albuterol Sulfate (Proair Hfa) 1 Puff Puff, 2 PUFF IH Q4H Prescribed by: Brendan Washington on 12/17/211916 Amoxicillin (Amoxicillin) 500 Mg Capsule, 500 MG PO BID Prescribed by: AAMIR ELLIS on 08/16/20 1537 Cephalexin (Cephalexin) 500 Mg Capsule, (Reported) Entered as Reported by: TU MEDEIROS on 12/11/19 0005 Cephalexin (Cephalexin) 500 Mg Tablet, 500 MG PO TID Prescribed by: AFSANEH PATE on 12/12/20 1604 Hydrocodone/Acetaminophen (Hydrocodone-Acetamin 5-325 mg) 1 Each Tablet, (Reported) Entered as Reported by: TU MEDEIROS on 12/11/19 0005 Naproxen (Naproxen) 500 Mg Tablet, (Reported) Entered as Reported by: TU MEDEIROS on 12/11/19 0005 Ondansetron (Ondansetron Odt) 4 Mg Tab.rapdis, 4 MG PO Q6H Prescribed by: HARLEY HICKEY on 12/15/212047 Promethazine/Dextromethorphan (Promethazine-Dm Syrup) 6.25 Mg-15 Mg/5 Ml Syrup, 5 ML PO Q6H PRN for COUGH Prescribed by: Brendan Washington on 12/17/211916 Sulfamethoxazole/Trimethoprim (Bactrim Ds Tablet) 1 Each Tablet, 1 EACH PO BID Prescribed by: RADHA MOLINA on 12/15/19 0339 Past Ejgznin-Iraukl-Foygkt Hx Immunizations Up To Date Tetanus Booster (TDap): Less than 5yrs PED Vaccines UTD: Yes Seasonal Allergies Seasonal Allergies: No Past Medical History Surgeries: Yes (BMT'S ) Adenoidectomy, Ear Surgery, Tonsillectomy Respiratory: No Cardiac: No Neurological: No Genitourinary: No Gastrointestinal: No Musculoskeletal: No Endocrine: No HEENT: No Cancer: No Psychosocial: No Integumentary: No Blood Disorders: No Family Medical History No Pertinent Family Hx Physical Exam Vital Signs Vital Signs - First Documented 04/10/22 01:45 Temp 36.5 Pulse 69 Resp 16 B/P (MAP) 124/73 (90) Pulse Ox 98 O2 Delivery Room Air Capillary Refill : Height, Weight, BMI Height: 5'11.00" Weight: 175lbs. oz. 79.170331sb; 25.00 BMI Method:Stated Progress/Results/Core Measures Suspected Sepsis SIRS Temperature: Pulse: Respiratory Rate: Laboratory Tests 04/10/22 01:50: White Blood Count 7.9 Blood Pressure / Mean: Laboratory Tests 04/10/22 01:50: Creatinine 0.86, Platelet Count 288, Total Bilirubin 0.7 Results/Orders Lab Results Laboratory Tests Test 04/10/22 01:50 Range/Units White Blood Count 7.9 4.3-11.0 10^3/uL Red Blood Count 5.05 4.30-5.52 10^6/uL Hemoglobin 15.3 13.3-17.7 g/dL Hematocrit 43 40-54 % Mean Corpuscular Volume 86 80-99 fL Mean Corpuscular Hemoglobin 30 25-34 pg Mean Corpuscular Hemoglobin Concent 35 32-36 g/dL Red Cell Distribution Width 12.3 10.0-14.5 % Platelet Count 288 130-400 10^3/uL Mean Platelet Volume 10.2 9.0-12.2 fL Immature Granulocyte % (Auto) 0 % Neutrophils (%) (Auto) 66 42-75 % Lymphocytes (%) (Auto) 25 12-44 % Monocytes (%) (Auto) 7 0-12 % Eosinophils (%) (Auto) 1 0-10 % Basophils (%) (Auto) 1 0-10 % Neutrophils # (Auto) 5.2 1.8-7.8 10^3/uL Lymphocytes # (Auto) 2.0 1.0-4.0 10^3/uL Monocytes # (Auto) 0.6 0.0-1.0 10^3/uL Eosinophils # (Auto) 0.1 0.0-0.3 10^3/uL Basophils # (Auto) 0.0 0.0-0.1 10^3/uL Immature Granulocyte # (Auto) 0.0 0.0-0.1 10^3/uL Sodium Level 143 135-145 MMOL/L Potassium Level 3.6 3.6-5.0 MMOL/L Chloride Level 110 H 98-107 MMOL/L Carbon Dioxide Level 22 21-32 MMOL/L Anion Gap 11 5-14 MMOL/L Blood Urea Nitrogen 7 7-18 MG/DL Creatinine 0.86 0.60-1.30 MG/DL Estimat Glomerular Filtration Rate 124 BUN/Creatinine Ratio 8 Glucose Level 104 70-105 MG/DL Calcium Level 9.2 8.5-10.1 MG/DL Corrected Calcium 8.5-10.1 MG/DL Magnesium Level 2.1 1.6-2.4 MG/DL Total Bilirubin 0.7 0.1-1.0 MG/DL Aspartate Amino Transf (AST/SGOT) 17 5-34 U/L Alanine Aminotransferase (ALT/SGPT) 18 0-55 U/L Alkaline Phosphatase 90 40-136 U/L Total Protein 7.5 6.4-8.2 GM/DL Albumin 4.6 H 3.2-4.5 GM/DL Amylase Level 48 25-125 U/L Lipase 25 8-78 U/L Acetaminophen Level < 10 L 10-30 UG/ML Serum Alcohol 247 H <10 MG/DL My Orders Orders - RADHA MOLINA DO Acetaminophen (04/10/22 01:51) Alcohol (04/10/22 01:51) Amylase (04/10/22 01:51) Cbc With Automated Diff (04/10/22 01:51) Comprehensive Metabolic Panel (04/10/22 01:51) Drug Screen Stat (Urine) (04/10/22 01:51) Lipase (04/10/22 01:51) Magnesium (04/10/22 01:51) Ua Culture If Indicated (04/10/22 01:51) Ed Iv/Invasive Line Start (04/10/22 01:51) Ns Iv 1000 Ml (Sodium Chloride 0.9%) (04/10/22 02:00) Ondansetron Injection (Zofran Injectio (04/10/22 02:00) Ed Iv/Invasive Line Start (04/10/22 02:56) Lactated Ringers (Lr 1000 Ml Iv Solution (04/10/22 03:00) Medications Given in ED Current Medications Medications Dose Ordered Sig/Rosemarie Route Start Time Stop Time Status Last Admin Dose Admin Lactated Ringer's 1,000 ml @ 0 mls/hr Q0M ONCE IV 04/10/22 03:00 04/10/22 03:01 DC 04/10/22 03:12 0 MLS/HR Ondansetron HCl 8 mg ONCE ONCE IVP 04/10/22 02:00 04/10/22 02:01 DC 04/10/22 02:00 8 MG Vital Signs/I&O 04/10/22 04/10/22 01:45 01:45 Temp 36.5 Pulse 69 Resp 16 B/P (MAP) 124/73 (90) Pulse Ox 98 O2 Delivery Room Air Room Air Capillary Refill : Progress Note : Progress Note GIVEN WARMED IV FLUIDS AND ZOFRAN WET CLOTHING REMOVED, AND WARM BLANKETS. PT NODS HEAD YES AND NO SEEMINGLY APPROPRIATE WHEN ASKED IF HE WAS COLD, NODS HEAD YES WHEN ASKED IF HE HAD PAIN ANYWHERE, SHAKES HEAD NO. WHEN ASKED IF HE WAS NAUSEATED, HE SHAKES HEAD NO. Departure Impression Primary Impression: Alcohol intoxication Disposition: 01 HOME, SELF-CARE Condition: Stable Departure-Patient Inst. Decision time for Depature: 03:43 Referrals: ESTHER LIRA (PCP/Family) Primary Care Physician Patient Instructions: Alcohol Intoxication ED, Alcohol Use Disorder ED Add. Discharge Instructions: NO ALCOHOL!!! LOTS OF CLEAR LIQUIDS--WATER, BROTH, JELLO, GATORADE BRATS DIET--BANANAS, RICE, APPLESAUCE, TOAST, SALTINES FOLLOW UP WITH DRKeegan OF CHOICE NEEDED, RETURN TO ER IF SYMPTOMS WORSEN. All discharge instructions reviewed with patient and/or family. Voiced understanding. RADHA MOLINA DO Apr 10, 2022 01:57
[2022-04-10] MEDS ORDERED: ONDANSETRON 4 MG/2 ML (SDV) Z0FRAN IVP ONE (02:00)
[2022-04-10] MEDS ORDERED: NS IV 1000 ML 1,000 ML IV SCH (02:00)
[2022-04-10 02:03] LABS: BASOPHILS % (AUTO) 1 % (0-10); EOSINOPHILS # (AUTO) 0.1 10^3/uL (0.0-0.3); EOSINOPHILS % (AUTO) 1 % (0-10); HEMATOCRIT 43 % (40-54); HEMOGLOBIN 15.3 g/dL (13.3-17.7); LYMPHOCYTES % (AUTO) 25 % (12-44); MEAN CORPUSCULAR HEMOGLOBIN 30 pg (25-34); MEAN CORPUSCULAR HGB CONC 35 g/dL (32-36); MEAN CORPUSCULAR VOLUME 86 fL (80-99); MEAN PLATELET VOLUME 10.2 fL (9.0-12.2); MONOCYTES # (AUTO) 0.6 10^3/uL (0.0-1.0); MONOCYTES % (AUTO) 7 % (0-12); NEUTROPHILS # (AUTO) 5.2 10^3/uL (1.8-7.8); NEUTROPHILS % (AUTO) 66 % (42-75); PLATELET COUNT 288 10^3/uL (130-400); WHITE BLOOD COUNT 7.9 10^3/uL (4.3-11.0)
[2022-04-10 02:16] LABS: ALBUMIN 4.6 GM/DL (3.2-4.5); CHLORIDE 110 MMOL/L (98-107); POTASSIUM 3.6 MMOL/L (3.6-5.0); SODIUM 143 MMOL/L (135-145)
[2022-04-10 02:17] LABS: CALCIUM 9.2 MG/DL (8.5-10.1)
[2022-04-10 02:18] LABS: AMYLASE 48 U/L (25-125)
[2022-04-10 02:19] LABS: GLUCOSE 104 MG/DL (70-105); TOTAL PROTEIN 7.5 GM/DL (6.4-8.2)
[2022-04-10 02:20] LABS: CARBON DIOXIDE 22 MMOL/L (21-32)
[2022-04-10 02:21] LABS: BILIRUBIN,TOTAL 0.7 MG/DL (0.1-1.0)
[2022-04-10 02:22] LABS: ALKALINE PHOSPHATASE 90 U/L (40-136)
[2022-04-10 02:23] LABS: CREATININE SERUM 0.86 MG/DL (0.60-1.30); GFR ESTIMATED 124
[2022-04-10 02:24] LABS: ACETAMINOPHEN < 10 UG/ML (10-30); BUN/CREATININE RATIO 8
[2022-04-10 02:25] LABS: ALANINE AMINOTRANSFERASE 18 U/L (0-55); MAGNESIUM 2.1 MG/DL (1.6-2.4)
[2022-04-10 02:26] LABS: LIPASE 25 U/L (8-78)
[2022-04-10] MEDS ORDERED: LACTATED RINGERS 1,000 ML IV ONE (03:00)
[2022-04-10] MEDS ORDERED: AMMONIA INHALATION 0.33 ML AMP ONE (04:11)
[2022-04-10 04:19] VITALS: BP 105/59
[2022-04-11] MEDS ORDERED: AMOX1TAB12 PO (15:07)
== END 2022-04-10 04:19 | disposition home or self-care (01) ==
LOC: EDUNIT# 01:41 → ER 01:42
DX: F10.129 Alcohol abuse with intoxication, unspecified (principal); Z28.310 Unvaccinated for COVID-19
CPT/HCPCS: 36415; 80053; 80320; 80329; 82150; 83690; 83735; 85025

== ENCOUNTER 2022-04-11 14:05 | Emergency (ER) | payer MEDICAID ==
[~2022-04-11] VITALS: Ht 187 cm; Wt 81.0 kg
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
--- NOTE | 2022-04-11 15:00 | Diagnostic Imaging Report ---
History: Nose pain, swelling after fall TECHNIQUE: 3 views of the nasal bones COMPARISON: CT head from 01/26/2021 FINDINGS: There is a subtle linear lucency with mild cortical offset at the distal left nasal bone. There is a fluid level in the left maxillary sinus. No other facial fractures are seen. IMPRESSION: 1. Subtle linear lucency at the distal left nasal bone, concerning for a nondisplaced fracture. 2. Fluid level in the left maxillary sinus, can be due to sinusitis or facial fracture. If there is concern for additional facial fractures, consider CT. Dictated by: Dictated on workstation # [id number]
[2022-04-11] MEDS ORDERED: AMOX1TAB12 PO (15:07)
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
[2022-04-11 15:40] VITALS: BP 164/77
== END 2022-04-11 15:40 | disposition home or self-care (01) ==
LOC: EDUNIT# 14:05 → ER 14:08
DX: S02.2XXA Fracture of nasal bones, initial encounter for closed fracture (principal); M54.2 Cervicalgia; Z72.0 Tobacco use; Z28.310 Unvaccinated for COVID-19; W17.89XA Other fall from one level to another, initial encounter; Y92.410 Unspecified street and highway as the place of occurrence of the external cause
CPT/HCPCS: 70160; 72125

== ENCOUNTER 2023-02-26 16:44 | Emergency (ER) | payer MEDICAID ==
[~2023-02-26] VITALS: Ht 187 cm; Wt 84.0 kg
[~2023-02-26 16:44] MED LIST changes: +ALBU8.5H6 IH; +AMOX1TAB12 PO; -D-ME473S11 PO; +PROM473S15 PO; -RT-ALBUINH IH
[2023-02-26] MEDS ORDERED: NS IV 1000 ML 1,000 ML IV STA ×2 (17:03→17:40)
[2023-02-26] MEDS ORDERED: NS IV 1000 ML 1,000 ML ONE (17:03)
[2023-02-26 17:09] LABS: BASOPHILS % (AUTO) 1 % (0-10); EOSINOPHILS # (AUTO) 0.1 10^3/uL (0.0-0.3); EOSINOPHILS % (AUTO) 2 % (0-10); HEMATOCRIT 42 % (40-54); HEMOGLOBIN 14.7 g/dL (13.3-17.7); LYMPHOCYTES # (AUTO) 1.4 10^3/uL (1.0-4.0); LYMPHOCYTES % (AUTO) 20 % (12-44); MEAN CORPUSCULAR HEMOGLOBIN 30 pg (25-34); MEAN CORPUSCULAR HGB CONC 35 g/dL (32-36); MEAN CORPUSCULAR VOLUME 86 fL (80-99); MEAN PLATELET VOLUME 10.3 fL (9.0-12.2); MONOCYTES # (AUTO) 0.8 10^3/uL (0.0-1.0); MONOCYTES % (AUTO) 11 % (0-12); NEUTROPHILS % (AUTO) 67 % (42-75); PLATELET COUNT 245 10^3/uL (130-400); WHITE BLOOD COUNT 7.4 10^3/uL (4.3-11.0)
--- NOTE | 2023-02-26 17:21 | ED General ---
General Chief Complaint: Overdose Stated Complaint: INGESTION UNKNOWN SUBSTANCE/LEGS/ARMS TINGLING Nursing Triage Note: PT TO ED W/ C/O "FEELING WEIRD" AFTER EATING WHAT HE THOUGHT WAS A PIECE OF CANDY GIVEN TO HIM BY "[employer]" IN [place]. STATES IT WAS A GUMMY BEAR/ Source of Information: Patient Exam Limitations: No Limitations History of Present Illness Date Seen by Provider: Feb 26, 2023 Time Seen by Provider: 17:06 Initial Comments Here with report of feeling weird after eating what he thought was a piece of candy but turned out to be a gummy. He is unsure if it was a THC gummy or not but he feels shaky and tingly. Apparently ingestion was couple of hours ago. States he does not normally do that. Denies suicidal or homicidal intent. States his friend gave it to. Denies nausea, vomiting, fever or chills. Timing/Duration: 1-3 Hours Severity: Moderate Associated Systoms: No Chest Pain, No Fever/Chills, No Nausea/Vomiting, No Shortness of Air, No Weakness Allergies and Home Medications Allergies Coded Allergies: No Known Drug Allergies (Unverified , 04/01/14) Patient Home Medication List Home Medication List Reviewed: Yes Albuterol Sulfate (Ventolin Hfa) 1 Puff Puff, 2 PUFF IH Q4H Prescribed by: Brendan Washington on 12/17/211916 Amoxicillin (Amoxicillin) 500 Mg Capsule, 500 MG PO BID Prescribed by: AAMIR ELLIS on 08/16/20 1537 Amoxicillin/Potassium Clav (Amox Tr-K Clv 875-125 mg Tab) 875 Mg-125 Mg Tablet, 1 EACH PO BID Prescribed by: ASIA CASTREJON on 04/11/22 1507 Cephalexin (Cephalexin) 500 Mg Capsule, (Reported) Entered as Reported by: TU MEDEIROS on 12/11/19 0005 Cephalexin (Cephalexin) 500 Mg Tablet, 500 MG PO TID Prescribed by: AFSANEH PATE on 12/12/20 1604 Hydrocodone/Acetaminophen (Hydrocodone-Acetamin 5-325 mg) 1 Each Tablet, (Reported) Entered as Reported by: TU MEDEIROS on 12/11/194 Naproxen (Naproxen) 500 Mg Tablet, (Reported) Entered as Reported by: TU MEDEIROS on 12/11/19 0005 Ondansetron (Ondansetron Odt) 4 Mg Tab.rapdis, 4 MG PO Q6H Prescribed by: HARLEY HICKEY on 12/15/212047 Promethazine/Dextromethorphan (Promethazine-Dm Syrup) 6.25 Mg-15 Mg/5 Ml Syrup, 5 ML PO Q6H PRN for COUGH Prescribed by: Brendan Washington on 12/17/211916 Sulfamethoxazole/Trimethoprim (Bactrim Ds Tablet) 1 Each Tablet, 1 EACH PO BID Prescribed by: RADHA MOLINA on 12/15/19 0339 Review of Systems Review of Systems Constitutional: see HPI; No fever EENTM: no symptoms reported Respiratory: No cough, No short of breath Cardiovascular: No chest pain; palpitations Gastrointestinal: No nausea, No vomiting Genitourinary: no symptoms reported Musculoskeletal: no symptoms reported Psychiatric/Neurological: Tingling; Denies Weakness Past Dniytox-Omfhjo-Gvcmte Hx Patient Social History Tobacco Use?: No Use of E-Cig and/or Vaping dev: Yes E-Cig or Vaping type used: Nicotine Substance use?: No Immunizations Up To Date Tetanus Booster (TDap): Less than 5yrs PED Vaccines UTD: Yes Seasonal Allergies Seasonal Allergies: No Past Medical History Surgeries: Yes (BMT'S ) Adenoidectomy, Ear Surgery, Tonsillectomy Respiratory: No Cardiac: No Neurological: No Genitourinary: No Gastrointestinal: No Musculoskeletal: No Endocrine: No HEENT: No Cancer: No Psychosocial: No Integumentary: No Blood Disorders: No Family Medical History Reviewed Nursing Family Hx No Pertinent Family Hx Physical Exam Vital Signs Vital Signs - First Documented 02/26/23 16:55 Temp 36.6 Pulse 129 Resp 20 B/P (MAP) 151/75 (100) Pulse Ox 97 O2 Delivery Room Air Capillary Refill : Less Than 3 Seconds Height, Weight, BMI Height: 5'11.00" Weight: 175lbs. oz. 79.343998hw; 24.00 BMI Method:Stated General Appearance: No Apparent Distress, WD/WN HEENT: PERRL/EOMI, Pharynx Normal Neck: Non Tender, Supple Respiratory: Lungs Clear, Normal Breath Sounds Cardiovascular: No Murmur, Tachycardia Gastrointestinal: Non Tender, Soft Back: Normal Inspection, No CVA Tenderness, No Vertebral Tenderness Extremity: Normal Range of Motion, Non Tender Neurologic/Psychiatric: Alert, Oriented x3 Progress/Results/Core Measures Suspected Sepsis SIRS Temperature: Pulse: 129 Respiratory Rate: 20 Laboratory Tests 02/26/23 16:59: White Blood Count 7.4 Blood Pressure 151 /75 Mean: 100 Laboratory Tests 02/26/23 16:59: Creatinine 1.01, Platelet Count 245, Total Bilirubin 1.5H Results/Orders Lab Results Laboratory Tests Test 02/26/23 16:59 02/26/23 17:42 Range/Units White Blood Count 7.4 4.3-11.0 10^3/uL Red Blood Count 4.94 4.30-5.52 10^6/uL Hemoglobin 14.7 13.3-17.7 g/dL Hematocrit 42 40-54 % Mean Corpuscular Volume 86 80-99 fL Mean Corpuscular Hemoglobin 30 25-34 pg Mean Corpuscular Hemoglobin Concent 35 32-36 g/dL Red Cell Distribution Width 11.7 10.0-14.5 % Platelet Count 245 130-400 10^3/uL Mean Platelet Volume 10.3 9.0-12.2 fL Immature Granulocyte % (Auto) 0 % Neutrophils (%) (Auto) 67 42-75 % Lymphocytes (%) (Auto) 20 12-44 % Monocytes (%) (Auto) 11 0-12 % Eosinophils (%) (Auto) 2 0-10 % Basophils (%) (Auto) 1 0-10 % Neutrophils # (Auto) 5.0 1.8-7.8 10^3/uL Lymphocytes # (Auto) 1.4 1.0-4.0 10^3/uL Monocytes # (Auto) 0.8 0.0-1.0 10^3/uL Eosinophils # (Auto) 0.1 0.0-0.3 10^3/uL Basophils # (Auto) 0.0 0.0-0.1 10^3/uL Immature Granulocyte # (Auto) 0.0 0.0-0.1 10^3/uL Sodium Level 139 135-145 MMOL/L Potassium Level 3.0 L 3.6-5.0 MMOL/L Chloride Level 106 98-107 MMOL/L Carbon Dioxide Level 22 21-32 MMOL/L Anion Gap 11 5-14 MMOL/L Blood Urea Nitrogen 7 7-18 MG/DL Creatinine 1.01 0.60-1.30 MG/DL Estimat Glomerular Filtration Rate 106 BUN/Creatinine Ratio 7 Glucose Level 112 H 70-105 MG/DL Calcium Level 9.6 8.5-10.1 MG/DL Corrected Calcium 8.5-10.1 MG/DL Magnesium Level 1.8 1.6-2.4 MG/DL Total Bilirubin 1.5 H 0.1-1.0 MG/DL Aspartate Amino Transf (AST/SGOT) 16 5-34 U/L Alanine Aminotransferase (ALT/SGPT) 19 0-55 U/L Alkaline Phosphatase 76 40-136 U/L Total Protein 7.6 6.4-8.2 GM/DL Albumin 4.8 H 3.2-4.5 GM/DL Salicylates Level < 5.0 L 5.0-20.0 MG/DL Acetaminophen Level < 10 L 10-30 UG/ML Serum Alcohol < 10 <10 MG/DL Urine Opiates Screen NEGATIVE NEGATIVE Urine Oxycodone Screen NEGATIVE NEGATIVE Urine Methadone Screen NEGATIVE NEGATIVE Urine Propoxyphene Screen NEGATIVE NEGATIVE Urine Barbiturates Screen NEGATIVE NEGATIVE Ur Tricyclic Antidepressants Screen NEGATIVE NEGATIVE Urine Phencyclidine Screen NEGATIVE NEGATIVE Urine Amphetamines Screen NEGATIVE NEGATIVE Urine Methamphetamines Screen NEGATIVE NEGATIVE Urine Benzodiazepines Screen NEGATIVE NEGATIVE Urine Cocaine Screen NEGATIVE NEGATIVE Urine Cannabinoids Screen POSITIVE H NEGATIVE My Orders Orders - SATISH GAUTHIER MD Acetaminophen (02/26/23 17:03) Alcohol (02/26/23 17:03) Cbc With Automated Diff (02/26/23 17:03) Comprehensive Metabolic Panel (02/26/23 17:03) Drug Screen Stat (Urine) (02/26/23 17:03) Magnesium (02/26/23 17:03) Salicylate (02/26/23 17:03) Ns Iv 1000 Ml (Ns Iv 1000 Ml) (02/26/23 17:03) Ed Iv/Invasive Line Start (02/26/23 17:03) Ekg Tracing (02/26/23 17:03) Monitor-Rhythm Ecg Trace Only (02/26/23 17:03) Ns Iv 1000 Ml (Ns Iv 1000 Ml) (02/26/23 17:03) Ns Iv 1000 Ml (Ns Iv 1000 Ml) (02/26/23 17:40) Vital Signs/I&O 02/26/23 16:55 Temp 36.6 Pulse 129 Resp 20 B/P (MAP) 151/75 (100) Pulse Ox 97 O2 Delivery Room Air Capillary Refill : Less Than 3 Seconds Blood Pressure Mean: 100 Progress Note : Progress Note Seen and evaluated. IV, labs including CBC, CMP, UA, Tylenol, salicylate and alcohol levels ordered. We will get EKG. Normal saline 1 L bolus. Patient is satting okay and mentating all right. Monitor patient. Differential diagnosis includes drug ingestion, electrolyte abnormality, dehydration 1834: CBC grossly normal. CMP shows slightly low potassium and slightly elevated total bili but otherwise no significant abnormalities. Tylenol, salicylate and alcohol are negative. UDS is positive for marijuana. Overall he is feeling much better and feels comfortable going home. Mother is in agreement. Discharged home with return precautions. Patient and family verbalized understanding of instructions and agreement with plan. ECG Initial ECG Impression Date: Feb 26, 2023 Initial ECG Impression Time: 17:17 Initial ECG Rate: 112 Initial ECG Rhythm: S.Tach Comment Has tachycardia with normal axis. No evidence of ST elevation [place]. Interpreted by me. Departure Impression Primary Impression: Marijuana intoxication Qualified Codes: F12.920 - Cannabis use, unspecified with intoxication, un complicated Disposition: 01 HOME, SELF-CARE Condition: Improved Departure-Patient Inst. Decision time for Depature: 18:37 Referrals: [facility] [place] Primary Care Physician Patient Instructions: ALCOHOL AND SUBSTANCE ABUSE, Hypokalemia (DC), Marijuana Add. Discharge Instructions: All discharge instructions reviewed with patient and/or family. Voiced understanding. Drink plenty of fluids and try to eat a normal diet. Avoid THC components, marijuana and Gummies. Follow-up with your doctor in a few days for recheck. Return for worse pain, fever, vomiting, weakness, breathing problems or other concerns as needed. SATISH GAUTHIER MD Feb 26, 2023 17:21
[2023-02-26 17:44] LABS: ALANINE AMINOTRANSFERASE 19 U/L (0-55); ALBUMIN 4.8 GM/DL (3.2-4.5); ALKALINE PHOSPHATASE 76 U/L (40-136); BILIRUBIN,TOTAL 1.5 MG/DL (0.1-1.0); BUN/CREATININE RATIO 7; CALCIUM 9.6 MG/DL (8.5-10.1); CARBON DIOXIDE 22 MMOL/L (21-32); CHLORIDE 106 MMOL/L (98-107); CREATININE SERUM 1.01 MG/DL (0.60-1.30); GFR ESTIMATED 106; GLUCOSE 112 MG/DL (70-105); MAGNESIUM 1.8 MG/DL (1.6-2.4); SODIUM 139 MMOL/L (135-145); TOTAL PROTEIN 7.6 GM/DL (6.4-8.2)
[2023-02-26 17:49] LABS: SALICYLATE < 5.0 MG/DL (5.0-20.0)
[2023-02-26 17:50] LABS: ACETAMINOPHEN < 10 UG/ML (10-30)
[2023-02-26 18:01] LABS: AMPHETAMINE SCREEN, URINE NEGATIVE (NEGATIVE); BARBITURATE SCREEN URINE NEGATIVE (NEGATIVE); BENZODIAZEPINES SCREEN URINE NEGATIVE (NEGATIVE); CANNABINOID SCREEN, URINE POSITIVE (NEGATIVE); COCAINE SCREEN URINE NEGATIVE (NEGATIVE); METHADONE STAT NEGATIVE (NEGATIVE); OPIATE SCREEN URINE NEGATIVE (NEGATIVE); OXYCODONE STAT NEGATIVE (NEGATIVE); PROPOXYPHENE STAT NEGATIVE (NEGATIVE); TRICYCLIC ANTIDEPRESSANTS SCRE NEGATIVE (NEGATIVE)
[2023-02-26 18:49] VITALS: BP 127/69
== END 2023-02-26 18:49 | disposition home or self-care (01) ==
LOC: EDUNIT# 16:44 → ER 16:48
DX: F12.929 Cannabis use, unspecified with intoxication, unspecified (principal); R00.0 Tachycardia, unspecified; F17.290 Nicotine dependence, other tobacco product, uncomplicated
CPT/HCPCS: 36415; 80053; 80306; 80320; 80329; 83735; 85025; 93005

== ENCOUNTER 2023-03-05 19:35 | Emergency (ER) | payer MEDICAID ==
[~2023-03-05] VITALS: Ht 190.5 cm; Wt 80.2 kg
[2023-03-05 19:46] VITALS: BP 132/79
--- NOTE | 2023-03-05 20:09 | ED General ---
General Chief Complaint: Cough/Cold/Flu Symptoms Stated Complaint: SORE THROAT, COUGH REYES Nursing Triage Note: Pt presents with c/o sore throat, cough and headache that started yesterday. Source of Information: Patient Exam Limitations: No Limitations History of Present Illness Date Seen by Provider: Mar 05, 2023 Time Seen by Provider: 19:38 Initial Comments This 23-year-old young man presents to the emergency room with flulike symptoms including cough, congestion, sore throat, and headache. He denies nausea, vomiting, diarrhea, or fever. Vital signs are stable and within normal limits. He denies any exposures to infectious illnesses. He has been taking ibuprofen. He claims [facility] is his primary care provider where he used to see Dave Leger. Allergies and Home Medications Allergies Coded Allergies: No Known Drug Allergies (Unverified , 04/01/14) Patient Home Medication List Home Medication List Reviewed: Yes Albuterol Sulfate (Ventolin Hfa) 1 Puff Puff, 2 PUFF IH Q4H Prescribed by: Brendan Washington on 12/17/21 1917 Amoxicillin (Amoxicillin) 500 Mg Capsule, 500 MG PO BID Prescribed by: AAMIR ELLIS on 08/16/20 1537 Amoxicillin/Potassium Clav (Amox Tr-K Clv 875-125 mg Tab) 875 Mg-125 Mg Tablet, 1 EACH PO BID Prescribed by: ASIA CASTREJON on 04/11/22 1507 Cephalexin (Cephalexin) 500 Mg Capsule, (Reported) Entered as Reported by: TU MEDEIROS on 12/11/19 0005 Cephalexin (Cephalexin) 500 Mg Tablet, 500 MG PO TID Prescribed by: AFSANEH PATE on 12/12/20 1604 Hydrocodone/Acetaminophen (Hydrocodone-Acetamin 5-325 mg) 1 Each Tablet, (Reported) Entered as Reported by: TU MEDEIROS on 12/11/19 0005 Naproxen (Naproxen) 500 Mg Tablet, (Reported) Entered as Reported by: TU MEDEIROS on 12/11/19 0005 Ondansetron (Ondansetron Odt) 4 Mg Tab.rapdis, 4 MG PO Q6H Prescribed by: HARLEY HICKEY on 12/15/212047 Promethazine/Dextromethorphan (Promethazine-Dm Syrup) 6.25 Mg-15 Mg/5 Ml Syrup, 5 ML PO Q6H PRN for COUGH Prescribed by: Brendan Washington on 12/17/211916 Sulfamethoxazole/Trimethoprim (Bactrim Ds Tablet) 1 Each Tablet, 1 EACH PO BID Prescribed by: RADHA MOLINA on 12/15/19 0339 Review of Systems Review of Systems Constitutional: no symptoms reported EENTM: see HPI Respiratory: no symptoms reported Cardiovascular: no symptoms reported Gastrointestinal: no symptoms reported Genitourinary: no symptoms reported Musculoskeletal: no symptoms reported Skin: no symptoms reported Psychiatric/Neurological: See HPI Hematologic/Lymphatic: No Symptoms Reported Immunological/Allergic: no symptoms reported Past Ukkzxre-Ljxled-Kxuolt Hx Patient Social History Tobacco Use?: No Use of E-Cig and/or Vaping dev: Yes E-Cig or Vaping type used: Nicotine Substance use?: No Alcohol Use?: No Pt feels they are or have been: No Immunizations Up To Date Tetanus Booster (TDap): Less than 5yrs PED Vaccines UTD: Yes Seasonal Allergies Seasonal Allergies: No Past Medical History Surgeries: Yes (BMT'S ) Adenoidectomy, Ear Surgery, Tonsillectomy Respiratory: No Cardiac: No Neurological: No Genitourinary: No Gastrointestinal: No Musculoskeletal: No Endocrine: No HEENT: Yes (Strabismus) Cancer: No Psychosocial: No Integumentary: No Blood Disorders: No Family Medical History No Pertinent Family Hx Physical Exam Vital Signs Vital Signs - First Documented 03/05/23 19:46 Temp 37.0 Pulse 75 Resp 18 B/P (MAP) 132/79 (96) Capillary Refill : Less Than 3 Seconds Height, Weight, BMI Height: 5'11.00" Weight: 175lbs. oz. 79.001349ia; 22.00 BMI Method:Stated General Appearance: No Apparent Distress, WD/WN Eyes: Bilateral Eye PERRL, Bilateral Eye EOMI, Bilateral Eye Other (Strabismus) HEENT: TMs Normal, Normal ENT Inspection, Other (Mild hyperemia of the posterior pharynx and soft palate with some minor cobblestoning) Neck: Normal Inspection; No JVD Respiratory: Lungs Clear, Normal Breath Sounds, No Accessory Muscle Use, No Respiratory Distress, Other (No wheezing or prolonged expiratory phase on forced expiration) Cardiovascular: Regular Rate, Rhythm, No Edema, No Murmur Extremity: Normal Inspection Neurologic/Psychiatric: Alert, Oriented x3, No Motor/Sensory Deficits, Normal Mood/Affect Skin: Normal Color, Warm/Dry Progress/Results/Core Measures Suspected Sepsis SIRS Temperature: Pulse: 75 Respiratory Rate: 18 Blood Pressure 132 /79 Mean: 96 Results/Orders Lab Results Laboratory Tests Test 03/05/23 19:50 03/05/23 19:53 Range/Units Influenza Type A (RT-PCR) Not Detected Not Detecte Influenza Type B (RT-PCR) Not Detected Not Detecte SARS-CoV-2 RNA (RT-PCR) Not Detected Not Detecte Group A Streptococcus Screen Not Detected NotDetected My Orders Orders - CHUCK PAREKH MD Rapid Strep A Screen (03/05/23 19:38) Covid 19 Inhouse Test (03/05/23 19:38) Influenza A And B By Pcr (03/05/23 19:38) Vital Signs/I&O 03/05/23 19:46 Temp 37.0 Pulse 75 Resp 18 B/P (MAP) 132/79 (96) Capillary Refill : Less Than 3 Seconds Blood Pressure Mean: 96 Progress Note #1: Time: 20:05 Progress Note Swabs for COVID-19, influenza, and rapid strep were ordered at 1938 after review ing chief complaint. Patient was interviewed and examined at 1952. Results are pending at this time. Patient is stable with normal vital signs. He does not require any immediate treatment. Progress Note #2: Time: 20:27 Progress Note All swabs were negative. Discharge instructions reviewed with patient. Work note provided. Departure Impression Primary Impression: Flu-like symptoms Disposition: HOME, SELF-CARE Condition: Improved Departure-Patient Inst. Decision time for Depature: 20:24 Referrals: [facility] (PCP/Family) Primary Care Physician Patient Instructions: VIRAL SYNDROME Add. Discharge Instructions: Your tests for flu, COVID-19, and strep were all negative. A backup culture will be performed on the strep swab and should be available in about 48 hours. You may take Tylenol (acetaminophen) up to 1000 mg every 6 hours as needed for discomfort or fever. You may also take ibuprofen up to 600 mg every 6 hours as needed for discomfort or fever. If you take any skgt-vug-szcannu medications for cough or congestion, be careful to review active ingredients so that you do not double up on any particular active ingredient, especially acetaminophen (Tylenol). Return to care if you have worsening symptoms despite following these instructions. All discharge instructions reviewed with patient and/or family. Voiced understanding. Work/School Note: Work Release Form Date Seen in the Emergency Department: Mar 05, 2023 Return to Work: Mar 07, 2023 Restrictions: Return-No Fever (24hrs), Return-No Vomiting(24hrs) CHUCK PAREKH MD Mar 05, 2023 20:09
== END 2023-03-05 20:37 | disposition home or self-care (01) ==
LOC: EDUNIT# 19:35 → ER 19:37
DX: J02.9 Acute pharyngitis, unspecified (principal); R05.9 Cough, unspecified; R09.81 Nasal congestion; R51.9 Headache, unspecified; F17.290 Nicotine dependence, other tobacco product, uncomplicated; Z20.822 Contact with and (suspected) exposure to COVID-19; Z28.310 Unvaccinated for COVID-19
CPT/HCPCS: 87430; 87636; 99283

== ENCOUNTER 2023-05-02 19:31 | Emergency (ER) | payer MEDICAID ==
[~2023-05-02] VITALS: Ht 190.5 cm; Wt 82.0 kg
[2023-05-02 19:40] VITALS: BP 147/70
[2023-05-02] MEDS ORDERED: Sulfamethoxazole/Trimethoprim DS TABLET PO ONE (20:00)
--- NOTE | 2023-05-02 20:04 | ED Lower Extremity ---
General Chief Complaint: Lower Extremity Stated Complaint: POSS INFECTION LEFT BIG TOE Nursing Triage Note: Pt presents with c/o L great toe pain. Pt states he believes it's infected, he reports pain increased x2 days with dried blood on it. Denies trauma Source: patient Exam Limitations: no limitations History of Present Illness Date Seen by Provider: May 02, 2023 Time Seen by Provider: 19:52 Initial Comments 23-year-old male presents to the ER with concerns for possible infected toenail. He reports that couple days ago he started having pain, and oozing from his left great toe. The pain is worse when he hits his toe. Denies fevers. Reports that he has had to have his toenail removed before, but is uncertain which foot. Allergies and Home Medications Allergies Coded Allergies: No Known Drug Allergies (Unverified , 04/01/14) Patient Home Medication List Home Medication List Reviewed: Yes Albuterol Sulfate (Ventolin Hfa) 1 Puff Puff, 2 PUFF IH Q4H Prescribed by: Brendan Washington on 12/17/21 191 Amoxicillin (Amoxicillin) 500 Mg Capsule, 500 MG PO BID Prescribed by: AAMIR ELLIS on 08/16/20 1537 Amoxicillin/Potassium Clav (Amox Tr-K Clv 875-125 mg Tab) 875 Mg-125 Mg Tablet, 1 EACH PO BID Prescribed by: ASIA CASTREJON on 04/11/22 1507 Cephalexin (Cephalexin) 500 Mg Capsule, (Reported) Entered as Reported by: TU MEDEIROS on 12/11/19 0005 Cephalexin (Cephalexin) 500 Mg Tablet, 500 MG PO TID Prescribed by: AFSANEH PATE on 12/12/20 1604 Hydrocodone/Acetaminophen (Hydrocodone-Acetamin 5-325 mg) 1 Each Tablet, (Reported) Entered as Reported by: TU MEDEIROS on 12/11/19 0005 Mupirocin (Mupirocin) 2 % Oin.pf.amador, 1 GM TP BID Prescribed by: Judie Esquivel on 05/02/232006 Naproxen (Naproxen) 500 Mg Tablet, (Reported) Entered as Reported by: TU MEDEIROS on 12/11/19 0005 Ondansetron (Ondansetron Odt) 4 Mg Tab.rapdis, 4 MG PO Q6H Prescribed by: HARLEY HICKEY on 12/15/212047 Promethazine/Dextromethorphan (Promethazine-Dm Syrup) 6.25 Mg-15 Mg/5 Ml Syrup, 5 ML PO Q6H PRN for COUGH Prescribed by: Brendan Washington on 12/17/211916 Sulfamethoxazole/Trimethoprim (Bactrim Ds Tablet) 1 Each Tablet, 1 EACH PO BID Prescribed by: RADHA MOLINA on 12/15/19 0339 Sulfamethoxazole/Trimethoprim (Bactrim Ds Tablet) 1 Each Tablet, 1 EACH PO BID Prescribed by: Judie Esquivel on 05/02/232006 Review of Systems Constitutional: see HPI Past Twgtgzl-Uvsqhg-Rlmksv Hx Immunizations Up To Date Tetanus Booster (TDap): Less than 5yrs PED Vaccines UTD: Yes Influenza Vaccine Up-to-Date: No; Not Current Seasonal Allergies Seasonal Allergies: No Past Medical History Surgeries: Yes (BMT'S ) Adenoidectomy, Ear Surgery, Tonsillectomy Respiratory: No Cardiac: No Neurological: No Genitourinary: No Gastrointestinal: No Musculoskeletal: No Endocrine: No HEENT: Yes (Strabismus) Cancer: No Psychosocial: No Integumentary: No Blood Disorders: No Family Medical History No Pertinent Family Hx Physical Exam Vital Signs Vital Signs - First Documented 05/02/23 19:40 Temp 36.8 Pulse 91 Resp 16 B/P (MAP) 147/70 (95) Capillary Refill : Less Than 3 Seconds Height, Weight, BMI Height: 5'11.00" Weight: 175lbs. oz. 79.389675yo; 22.00 BMI Method:Stated General Appearance: WD/WN, no apparent distress Neck: supple, normal inspection Cardiovascular: regular rate, rhythm Respiratory: lungs clear, normal breath sounds, no respiratory distress, no accessory muscle use Feet: left foot pain (Left great toe), left foot other (Erythema, swelling, drainage on lateral side of left great toenail.) Neurologic/Psychiatric: alert, normal mood/affect Skin: normal color, warm/dry Progress/Results/Core Measures Results/Orders My Orders Orders - JUDIE DELAROSA APRN Sulfamethoxazole/Tmp Ds Tablet (Sulfamet (05/02/23 20:00) Vital Signs/I&O 05/02/23 19:40 Temp 36.8 Pulse 91 Resp 16 B/P (MAP) 147/70 (95) Blood Pressure Mean: 95 Progress Progress Note : Progress Note Patient seen and evaluated, resting comfortably in recliner, no distress. Based on exam and symptoms, this appears like an infected ingrown toenail. Area is already draining, will not perform I&D. Considered removing part of toenail, but deferred due to area already draining and toenail will likely need to be completely removed anyways. Will give first dose of Bactrim and discharge with prescription for Bactrim. Will also discharge with mupirocin ointment prescription. Patient instructed to apply large amount of mupirocin ointment to his toe twice a day and keep his to cover with a bandage. Also instructed to soak his foot to help loosen the toenail. He is requesting an open toed shoe so that he does not have to wear his tennis shoes at work. Will give him a postop shoe. Patient is stable for discharge. Discharge instructions and return precautions provided. Departure Impression Primary Impression: Ingrown toenail of left foot with infection Disposition: HOME, SELF-CARE Condition: Stable Departure-Patient Inst. Decision time for Depature: 20:03 Ref[facility]: [facility] [place] Primary Care Physician KATY CABRERA DPM Patient Instructions: INGROWN TOENAIL Add. Discharge Instructions: Follow-up with Dr. Cabrera, podiatry. Call his office tomorrow to schedule a follow-up appointment. Apply moderate amount of mupirocin ointment twice a day and cover with a bandage. Complete full course of Bactrim as prescribed. Soak your foot in warm soapy water each night to help loosen the toenail. Return for any new, concerning, or worsening symptoms. All discharge instructions reviewed with patient and/or family. Voiced understanding. Scripts Mupirocin (Mupirocin) 2 % Oin.pf.amador 1 GM TP BID, #1 TUBE 0 Refills Prov: JUDIE DELAROSA APRN 05/02/23 Sulfamethoxazole/Trimethoprim (Bactrim Ds Tablet) 1 Each Tablet 1 EACH PO BID for 7 Days, #14 TAB 0 Refills Prov: JUDIE DELAROSA APRN 05/02/23 JUDIE DELAROSA APRN May 02, 2023 20:04
[2023-05-02] MEDS ORDERED: MUPI1OIN6 TP (20:07)
[2023-05-02] MEDS ORDERED: SULF1TAB38 PO (20:07)
== END 2023-05-02 20:15 | disposition home or self-care (01) ==
LOC: EDUNIT# 19:31 → ER 19:33
DX: L60.0 Ingrowing nail (principal)
CPT/HCPCS: 99283

== ENCOUNTER 2023-05-23 19:51 | Emergency (ER) | payer MEDICAID ==
[~2023-05-23] VITALS: Ht 187 cm; Wt 82.0 kg
[~2023-05-23 19:51] MED LIST changes: +MUPI1OIN6 TP
[2023-05-23 20:01] VITALS: BP 137/76
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
[2023-05-23] MEDS ORDERED: NAPR-915 PO (20:48)
== END 2023-05-23 20:51 | disposition home or self-care (01) ==
LOC: EDUNIT# 19:51 → ER 19:53
DX: R68.84 Jaw pain (principal); F17.290 Nicotine dependence, other tobacco product, uncomplicated; Y04.0XXA Assault by unarmed brawl or fight, initial encounter; Y92.009 Unspecified place in unspecified non-institutional (private) residence as the place of occurrence of the external cause
CPT/HCPCS: 70486

== ENCOUNTER 2023-05-28 20:52 | Emergency (ER) | payer MEDICAID ==
[~2023-05-28] VITALS: Ht 190.5 cm; Wt 83.0 kg
[~2023-05-28 20:52] MED LIST changes: +NAPR-915 PO
--- NOTE | 2023-05-28 21:10 | ED Integumentary General ---
General Chief Complaint: Skin/Wound Problems Stated Complaint: TOENAIL RED AND IRRITATED/SWOLLEN Nursing Triage Note: PATIENT STATES SEEN AT [facility] AND HAD LEFT FIRST TOE NAIL REMOVED. STATES NO FOLLOW UP. NO ANTIBIOTIC. PATIENT CONCERNED WITH INFECTION. TOES SWOLLEN, RED. PATIENT HAS A BOOT ON FOOT. Source: patient Exam Limitations: no limitations History of Present Illness Date Seen by Provider: May 28, 2023 Time Seen by Provider: 21:05 Initial Comments 23-year-old male presents to the ER with concern for infection after his toenail was removed from his left great toe. He states that the toenail was removed on May 21, states that it became red the day after. He reports he started h aving discolored drainage starting approximately 2 days ago. The toenail was removed at [facility], he called them today and they told him to come in and be seen. States that he was unable to make it to [facility] before they closed at 7, so he came to the ER instead. Denies fevers. Allergies and Home Medications Allergies Coded Allergies: No Known Drug Allergies (Unverified , 04/01/14) Patient Home Medication List Home Medication List Reviewed: Yes Albuterol Sulfate (Ventolin Hfa) 1 Puff Puff, 2 PUFF IH Q4H Prescribed by: Brendan Washington on 12/17/211916 Amoxicillin (Amoxicillin) 500 Mg Capsule, 500 MG PO BID Prescribed by: AAMIR ELLIS on 08/16/20 1537 Amoxicillin/Potassium Clav (Amox Tr-K Clv 875-125 mg Tab) 875 Mg-125 Mg Tablet, 1 EACH PO BID Prescribed by: ASIA CASTREJON on 04/11/22 1507 Cephalexin (Cephalexin) 500 Mg Capsule, (Reported) Entered as Reported by: TU MEDEIROS on 12/11/19 0005 Cephalexin (Cephalexin) 500 Mg Tablet, 500 MG PO TID Prescribed by: AFSANEH PATE on 12/12/20 1604 Hydrocodone/Acetaminophen (Hydrocodone-Acetamin 5-325 mg) 1 Each Tablet, (Reported) Entered as Reported by: TU MEDEIROS on 12/11/19 0005 Mupirocin (Mupirocin) 2 % Oin.pf.amador, 1 GM TP BID Prescribed by: Judie Esquivel on 05/02/232006 Naproxen (Naproxen) 500 Mg Tablet, (Reported) Entered as Reported by: TU MEDEIROS on 12/11/19 0005 Naproxen (Naproxen) 500 Mg Tablet, 500 MG PO Q12H Prescribed by: HARLEY HICKEY on 05/23/232047 Ondansetron (Ondansetron Odt) 4 Mg Tab.rapdis, 4 MG PO Q6H Prescribed by: HARLEY HICKEY on 12/15/212047 Promethazine/Dextromethorphan (Promethazine-Dm Syrup) 6.25 Mg-15 Mg/5 Ml Syrup, 5 ML PO Q6H PRN for COUGH Prescribed by: Brendan Washington on 12/17/211916 Sulfamethoxazole/Trimethoprim (Bactrim Ds Tablet) 1 Each Tablet, 1 EACH PO BID Prescribed by: RADHA MOLINA on 12/15/199 Sulfamethoxazole/Trimethoprim (Bactrim Ds Tablet) 1 Each Tablet, 1 EACH PO BID Prescribed by: Judie Esquivel on 05/02/232006 Sulfamethoxazole/Trimethoprim (Bactrim Ds Tablet) 1 Each Tablet, 1 EACH PO BID Prescribed by: Judie Esquivel on 05/28/232116 Review of Systems Review of Systems Constitutional: see HPI Past Fronybq-Srizma-Tbgfyh Hx Immunizations Up To Date Tetanus Booster (TDap): Less than 5yrs PED Vaccines UTD: Yes Seasonal Allergies Seasonal Allergies: No Past Medical History Surgeries: Yes (BMT'S ) Adenoidectomy, Ear Surgery, Tonsillectomy Respiratory: No Cardiac: No Neurological: No Genitourinary: No Gastrointestinal: No Musculoskeletal: No Endocrine: No HEENT: Yes (Strabismus) Cancer: No Psychosocial: No Integumentary: No Blood Disorders: No Family Medical History No Pertinent Family Hx Physical Exam Vital Signs Vital Signs - First Documented 05/28/23 21:05 Temp 37.4 Pulse 77 Resp 20 B/P (MAP) 139/77 (97) Pulse Ox 99 O2 Delivery Room Air Capillary Refill : Less Than 3 Seconds General Appearance: WD/WN, no apparent distress Neck: supple, normal inspection Cardiovascular: regular rate, rhythm Respiratory: lungs clear, normal breath sounds, no respiratory distress, no accessory muscle use Extremities: normal range of motion Neurologic/Psychiatric: alert, normal mood/affect Skin: normal color, warm/dry Skin Problem Location: lower extremities (Left great toe) Skin Problem Character: drainage, erythema, swelling Progress/Results/Core Measures Results/Orders My Orders Orders - JUDIE DELAROSA APRN Sulfamethoxazole/Tmp Ds Tablet (Sulfamet (05/28/23 21:15) Medications Given in ED Current Medications Medications Dose Ordered Sig/Rosemarie Route Start Time Stop Time Status Last Admin Dose Admin Trimethoprim/ Sulfamethoxazole 1 ea ONCE ONCE PO 05/28/23 21:15 05/28/23 21:16 DC 05/28/23 21:19 1 EA Vital Signs/I&O 05/28/23 05/28/23 21:05 21:30 Temp 37.4 Pulse 77 75 Resp 20 20 B/P (MAP) 139/77 (97) 163/82 Pulse Ox 99 96 O2 Delivery Room Air Nasal Cannula Blood Pressure Mean: 97 Progress Progress Note : Progress Note Patient seen and evaluated, resting comfortably in bed, no acute distress. Based on exam and symptoms, toe appears to be infected. Will start patient on Bactrim. Dressing placed over toe. Patient instructed to follow-up with [facility] in 2 days to have his wound reevaluated. Will give the first dose of the antibioti c tonight and discharged with prescription. Patient is stable for discharge. Discharge instructions and return precautions provided. Departure Impression Primary Impression: Postprocedural wound infection Disposition: 01 HOME, SELF-CARE Condition: Stable Departure-Patient Inst. Decision time for Depature: 21:16 Referrals: [facility] (PCP/Family) Primary Care Physician Patient Instructions: Wound Infection Add. Discharge Instructions: Complete full course of antibiotic as prescribed. Keep the dressing in place until you follow-up with [facility]. Follow-up with [facility] in 2 days to have your wound reevaluated. Return for fever, or any other new, concerning, or worsening symptoms. All discharge instructions reviewed with patient and/or family. Voiced understanding. Scripts Sulfamethoxazole/Trimethoprim (Bactrim Ds Tablet) 1 Each Tablet 1 EACH PO BID for 7 Days, #13 TAB 0 Refills Prov: JUDIE DELAROSA APRN 05/28/23 JUDIE DELAROSA APRN May 28, 2023 21:10
[2023-05-28] MEDS ORDERED: Sulfamethoxazole/Trimethoprim DS TABLET PO ONE (21:15)
[2023-05-28] MEDS ORDERED: SULF1TAB38 PO (21:17)
[2023-05-28 21:30] VITALS: BP 163/82
== END 2023-05-28 21:37 | disposition home or self-care (01) ==
LOC: EDUNIT# 20:52 → ER 20:55
DX: T81.49XA Infection following a procedure, other surgical site, initial encounter (principal)
CPT/HCPCS: 99283